=== PATIENT | female | born 1945 | race Caucasian/White ===

== ENCOUNTER → 2017-10-17 10:13 | Outpatient (CLI) | payer MEDICARE, MEDICAID, SELFPAY ==
--- NOTE | 2017-10-17 10:25 | XR_ITS ---
XR shoulder LT min 2V HISTORY: Shoulder pain ITS.REASON: IMPINGEMENT SYNDROME ORDERING PHYSICIAN: Colelen Hare PATIENT AGE: 72 years COMPARISON: None FINDINGS: There are mild osteoarthritic changes of the acromioclavicular joint and glenohumeral joint with mild hypertrophic changes at the AC joint. No fracture or dislocation. No lytic or blastic change. 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
== END ==
PROVIDERS: PCP Nurse Practitioner Family; Visit Provider Nurse Practitioner Family
DX: M75.42 Impingement syndrome of left shoulder (principal)
CPT/HCPCS: 73030

== ENCOUNTER 2017-10-26 18:59 | Emergency (ER) | payer MEDICARE, SELFPAY ==
[2017-10-26 19:12] VITALS: BP 153/72; PULSE 98; RESP 18; TEMP 36.8; O2SAT 97; BMI 30.2
[2017-10-26 19:58] LABS: Basophils % 0.5 % (0.1-2.0); Eosinophils # 0.1 K/mm3 (0.0-0.4); Hematocrit 41.2 % (37.0-47.0); Hemoglobin 13.1 g/dL (12.2-16.2); Lymphocytes # 2.5 K/mm3 (0.7-4.5); Lymphocytes % 32.7 K/mm3 (10-50); Mean Corpuscular HGB Conc 31.9 g/dL (31.8-35.4); Mean Corpuscular Hemoglobin 29.3 pg (27.0-31.2); Mean Platelet Volume 6.7 fl (7.4-10.4); Monocytes # 0.3 K/mm3 (0.1-1.0); Monocytes % 4.2 % (1.7-9.3); Neutrophils # 4.6 K/mm3 (1.8-7.8); Neutrophils % 61.6 % (37.0-80.0); Platelet Count 301 K/mm3 (142-424); Red Blood Count 4.48 M/mm3 (4.20-5.40); Red Cell Distribution Width 13.4 % (11.5-17.5); White Blood Count 7.5 K/mm3 (4.8-10.8)
[2017-10-26 20:19] LABS: Alanine Aminotransferase 26 U/L (12-78); Albumin Level 3.5 gm/dL (3.4-5.0); Albumin/Globulin Ratio 0.9 (1.1-1.8); Alkaline Phosphatase 105 U/L (46-116); Amylase 84 U/L (25-125); Aspartate Amino Transferase 14 U/L (15-37); Bilirubin,Total 0.3 mg/dL (0.2-1.0); Blood Urea Nitrogen 8 mg/dL (7-18); CKMB Relative Index 1.3 U/L (0-4.0); Calcium 9.3 mg/dL (8.5-10.1); Carbon Dioxide 29 mmol/L (21.0-32.0); Chloride 96 mmol/L (98-107); Creatine Kinase 39 U/L (26-192); Creatine Kinase MB < 0.5 mg/ml (0.0-3.6); Creatinine Clearance Estimated 70 mL/min (0-300); Creatinine,Serum 0.69 mg/dL (0.55-1.02); Estimated Glomerular Filt Rate 84 ml/min (>60); GFR (African American) 102 ML/MIN (>60); Globulin 3.7 gm/dl (1.3-3.2); Glucose 101 mg/dL (74-106); Lipase 203 u/L (73-393); Sodium 131 mmol/L (136-145); Total Protein,Serum 7.2 gm/dL (6.4-8.2); Troponin I < 0.02 ng/ml (0.00-0.06)
--- NOTE | 2017-10-26 20:42 | XR_ITS ---
XR chest 2V HISTORY: ITS.REASON: chest pain ORDERING PHYSICIAN: Michael Zarate MD PATIENT AGE: 72 years COMPARISON: 06/17/2016 FINDINGS: The cardiomediastinal silhouette and pulmonary vascularity are within normal limits. Chronic opacity is noted in the lingula similar to the previous exam consistent with fibrotic change. The remaining lungs are clear aside from a granuloma in the right upper lobe. Epidural stimulator device is present in the midthoracic spine. IMPRESSION: Chronic changes in the lingula. No acute finding
[2017-10-26 21:22] LABS: D-Dimer 698 (0-400)
--- NOTE | 2017-10-26 22:30 | CT_ITS ---
CT angio chest HISTORY: ITS.REASON: CHEST PAIN, SHORTNESS OF BREATH, ELEVATED D-DIMER ORDERING PHYSICIAN: Michael Zarate MD PATIENT AGE: 72 years TECHNIQUE: Axial images obtained following the administration of 75 mL of Isovue 370 . Sagittal, and coronal reformatted images are also generated and reviewed. COMPARISON: 04/15/2016 FINDINGS: No evidence of aortic pulmonary embolus or aortic aneurysm or dissection. Pulmonary artery/aorta ratio is greater than 1 with mild prominence of the main pulmonary artery. There is also mild stenosis of the ostium of the left main pulmonary artery. This is questionable clinical significance. Normal heart size. No evidence of pericardial effusion. No lobar consolidation or collapse. Centrilobular Emphysematous change. 1 cm left thyroid nodule. Spinal stimulator device is present. Upper abdominal images show a partially calcified nodule within the spleen measuring 12 mm. This is unchanged. IMPRESSION: 1. No evidence of pulmonary embolus or aortic aneurysm. 2. Mild prominence of the main pulmonary artery which may be seen with pulmonary arterial hypertension. Mild stenosis of the ostium of the left main pulmonary artery 3. Centrilobular emphysema
[2017-10-27 00:21] LABS: Creatine Kinase 38 U/L (26-192); Troponin I < 0.02 ng/ml (0.00-0.06)
--- NOTE | 2017-10-27 00:23 | HMH.EDGENADL ---
ED Disposition Clinical Impression: Acute bronchitis Qualifiers: Bronchitis organism: unspecified organism Qualified Code(s): J20.9 - Acute bronchitis, unspecified Disposition: Home, Self-Care Condition on Discharge: Good Instructions: Acute Bronchitis Additional Instructions: Please take the antibiotics prescribed as directed, follow up with your PCP within 24 hrs. If unable to see your doctor and if not better, please return promptly to this, same, emergency room for reevaluation. Prescriptions: levoFLOXacin [Levaquin 500mg tab] 500 mg PO DAILY #7 tab Referrals: Colleen Hare APRN [Primary Care Provider] - Time of Disposition: 00:24 - Critical Care Critical Care Time: No Attestation: On 10/26/17, the high probability of a clinically significant, sudden or life threatening deterioration of the following system(s) required my full and direct attention, intervention and personal management. The time I documented below is in addition to time spent performing reported procedures but includes the following listed in this critical care notation. Medical Decision Making - Medical Records Medical records reviewed: Yes: I reviewed the patient's medical records. Vital Signs: 10/26/17 19:12 10/27/17 00:40 Temperature 98.2 F 98.7 F Temperature Source Oral Oral Pulse Rate 80 Pulse Rate [Left Radial] 98 H Respiratory Rate 18 18 Blood Pressure 130/82 Blood Pressure [Right Arm] 153/72 Blood Pressure Mean [Right Arm] 99 Blood Pressure Source Automatic Cuff Blood Pressure Source [Right Arm] Automatic Cuff Blood Pressure Position Sitting Blood Pressure Position [Right Arm] Sitting 02 Sat by Pulse Oximetry 97 Oxygen Delivery Method Room Air Room Air - Lab Data Lab results reviewed: Yes: I reviewed the patient's lab results. Lab Results 10/26/17 19:42: WBC 7.5, RBC 4.48, Hgb 13.1, Hct 41.2, MCV 92.0, MCH 29.3, MCHC 31.9, RDW 13.4, Plt Count 301, MPV 6.7 L, Neut % (Auto) 61.6, Lymph % (Auto) 32.7, [place] % (Auto) 4.2, Eos % (Auto) 1.0, Baso % (Auto) 0.5, Neut # (Auto) 4.6, Lymph # (Auto) 2.5, [place] # (Auto) 0.3, Eos # (Auto) 0.1, Baso # (Auto) 0.0 10/26/17 19:42: Sodium 131 L, Potassium 4.0, Chloride 96 L, Carbon Dioxide 29, Anion Gap 10.0, BUN 8, Creatinine 0.69, Estimated Creat Clear 70, Estimated GFR 84, Est GFR ( Amer) 102, Glucose 101, Calcium 9.3, Total Bilirubin 0.3, AST 14 L, ALT 26, Alkaline Phosphatase 105, Total Creatine Kinase 39, CK-MB (CK-2) < 0.5, CK-MB (CK-2) Rel Index 1.3, Troponin I < 0.02, Total Protein 7.2, Albumin 3.5, Globulin 3.7 H, Albumin/Globulin Ratio 0.9 L, Amylase 84, Lipase 203 10/26/17 19:47: D-Dimer 698 H* 10/26/17 23:50: Total Creatine Kinase 38, CK-MB (CK-2) < 0.5, CK-MB (CK-2) Rel Index 1.3, Troponin I < 0.02 Result diagrams: 10/26/17 19:42 10/26/17 19:42 Orders (Tests/Meds): ED MEDICATIONS Discontinued Medications Generic Name Dose Route Start Last Admin Trade Name Freq PRN Reason Stop Dose Admin Enoxaparin Sodium 80 mg 10/26/17 22:23 Lovenox 80mg/0.8ml Syringe SQ 10/26/17 22:24 ONCE ONE Iopamidol 70 ml 10/27/17 01:13 10/26/17 21:45 Eyp-[id number]-355; 75ml Vial IV 10/27/17 01:14 70 ml ONCE ONE Administration Levofloxacin 750 mg 10/26/17 23:52 10/27/17 00:08 Levaquin 750mg Tablet PO 10/26/17 23:53 750 mg ONCE ONE Administration Protocol Sodium Chloride 10 ml 10/27/17 01:13 10/26/17 21:45 Rad-Saline Flush 10ml Syringe IV 10/27/17 01:14 10 ml ONCE ONE Administration Sodium Chloride 40 ml 10/27/17 01:13 10/26/17 21:45 Rad-Sod Chloride 0.9% 250ml IV 10/27/17 01:14 40 ml ONCE ONE Administration - Radiology Data #1 Image(s): Chest Image Reviewed: Yes I reviewed the patient's radiology results, Yes I reviewed the patient's radiology image Preliminary Findings: Normal/NAD - ECG Data Tracing #1 I reviewed this ECG and interpreted as documented below: ECG normal with no ac
[2017-10-27 00:25] LABS: CKMB Relative Index 1.3 U/L (0-4.0); Creatine Kinase MB < 0.5 mg/ml (0.0-3.6)
[2017-10-27 00:40] VITALS: BP 130/82; PULSE 80; RESP 18; TEMP 37.1; O2SAT 96
== END 2017-10-27 00:46 | disposition home or self-care (01) ==
PROVIDERS: Emergency Medicine; Emergency Provider Emergency Medicine; Family Provider Nurse Practitioner Family; PCP Nurse Practitioner Family
DX: J20.9 Acute bronchitis, unspecified (principal); Z79.899 Other long term (current) drug therapy; Z88.0 Allergy status to penicillin
CPT/HCPCS: 71046; 71275; 80053; 82150; 82550; 82553; 83690; 84484; 85025; 85378; 93005; 99282; Q9967

== ENCOUNTER → 2018-10-02 14:41 | Outpatient (CLI) | payer MEDICARE, SELFPAY ==
--- NOTE | 2018-10-02 14:47 | XR_ITS ---
XR DEXA axial skeleton HISTORY: ITS.REASON: OSTEOPENIA ORDERING PHYSICIAN: Colleen Hare PATIENT AGE: 73 years COMPARISON: 04/24/2016 FINDINGS: The BMD measured at the Left femoral neck is 0.836 g/cm squared with a T score of -1.5. This is considered Osteopenic according to the World Health Organization criteria. Fracture risk is Moderate. Treatment is advised. L1 L4 density has a T score of 1.0. The lumbar density has increased by 0.9% in the hip density has decreased by 0.6% IMPRESSION: Osteopenia with moderate fracture risk. Treatment is advised. Suggest follow-up exam in September 2020
--- NOTE | 2018-10-02 14:48 | MM_ITS ---
MM Dig screening mamm BI w/CAD ORDERING PHYSICIAN : Colleen Hare PATIENT AGE: 73 years GENDER: Female COMPARISON: April 2016 bilateral screening mammogram.] With subsequent Diagnostic mammogram Follow-up November 2016 right mammogram.. Right mammogram and ultrasound April 2016 INDICATION: Screening mammogram. 73-year-old. No hormones. No new complaints. Noncontributory family history. TECHNIQUE: Standard CC and MLO images were obtained. R2 CAD reviewed. FINDINGS: . Low-density breast with generalized fatty replacement. No new areas of significant concern. Only Scant Minimal residual fibroglandular elements bilaterally RIGHT BREAST:No new areas of concern . Stable area of scant fibroglandular asymmetry at lateral right breast. Unchanged. The Small nodular density/small cyst seen at 6:00 deep central right breast on previous 2016 studies as dissipated no longer evident. LEFT BREAST:No new areas of concern IMPRESSION: Stable low-density breast. No new areas of concern. Follow-up in one year recommended BI-RADS Category: 1 Negative RECOMMENDED FOLLOW-UP: 1YR 1 YEAR FOLLOW-UP (A letter has been sent to the patient regarding results of the study.)
== END ==
PROVIDERS: PCP Nurse Practitioner Family; Visit Provider Nurse Practitioner Family
DX: Z12.31 Encounter for screening mammogram for malignant neoplasm of breast (principal); Z13.820 Encounter for screening for osteoporosis; M85.89 Other specified disorders of bone density and structure, multiple sites
CPT/HCPCS: 77067; 77080

== ENCOUNTER → 2018-11-05 12:06 | Outpatient (CLI) | payer MEDICARE, SELFPAY ==
--- NOTE | 2018-11-05 | NVE_ITS ---
Venous Exam Indications: 729.81 Swelling of limb. IMPRESSIONS 1. There is no evidence of significant Reflux. 2. No evidence of deep or superficial vein thrombosis involving the left lower extremity 3. 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 Left lower extremity venous duplex evaluation. Doppler flow study including spectral analysis, color and reilly scale imaging. Location: Vascular laboratory. Patient status: Outpatient. CRITICAL FINDINGS - Reported to: Kaitlynn Parham's office - 11/05/2018 - 12:40 pm Tables: Venous flow and imaging: + +-------+ + Location Overall Flow properties + +-------+ + Left common femoral Patent Normal phasicity; spontaneous; normal augmentation; compressible + +-------+ + Left saphenofemoral junction Patent Compressible + +-------+ + Left profunda femoral Patent Compressible + +-------+ + Left femoral Patent Normal phasicity; spontaneous; normal augmentation; compressible + +-------+ + Left greater saphenous Patent Normal phasicity; spontaneous; normal augmentation; compressible + +-------+ + Left popliteal Patent Normal phasicity; spontaneous; normal augmentation; compressible + +-------+ + Left posterior tibial Patent Compressible + +-------+ + Left peroneal Patent Compressible + +-------+ + Left gastrocnemius Patent Compressible + +-------+ + Left soleal Patent Compressible + +-------+ + (Report amended ) Electronically signed by: Wellington Burdick [id number]
== END ==
PROVIDERS: PCP Internal Medicine Adolescent Medicine; Visit Provider Nurse Practitioner Family
DX: M79.605 Pain in left leg (principal); R60.0 Localized edema
CPT/HCPCS: 93971

== ENCOUNTER → 2018-11-26 12:55 | Outpatient (CLI) | payer MEDICARE, SELFPAY ==
--- NOTE | 2018-11-26 13:04 | XR_ITS ---
XR knee LT 4V Ordering Physician: Mala Muñoz MD Patient Age: 73 years: Female HISTORY: ITS.REASON: 4 views weightbearing Bilateral knee pain TECHNIQUE: : Weightbearing AP, lateral and Davila views were performed as well as oblique. Of both right and left knee. COMPARISON :Left knee November 2009 Left KNEE Progressive joint space narrowing and degenerative changes a left knee when compared to 2010 study. [id number] e narrowing at the lateral compartment appear to have progressed in the interval but we are comparing a very study today to the nonweightbearing study previous. Associated mild genu valgus Tricompartmental marginal osteophytes, moderate most evident about the medial and lateral compartment less pronounced at patellofemoral joint. Normal position of patella on the sunrise view. Likely some early osteochondral irregularities at lateral facet of patella reflecting degenerative changes here as well. Upper normal joint fluid no prominent joint effusion IMPRESSION... Degenerative arthritic changes at Left Knee with suggestion of slight progression since 2009 (Overall arthritic changes are less pronounced at left knee than the right knee ) Left knee: With mild/moderate joint space narrowing at lateral compartment & associated mild genu valgum . Tricompartmental Marginal osteophytes..
--- NOTE | 2018-11-26 13:04 | XR_ITS ---
XR knee RT 4V, Ordering Physician: Mala Muñoz MD Patient Age: 73 years: Female HISTORY: ITS.REASON: 4 views weightbearing TECHNIQUE: : Weightbearing AP, lateral and Davila views were performed as well as oblique. Of both right and left knee. COMPARISON : Right knee from 2012 ======== RIGHT KNEE Progressive joint space narrowing and degenerative changes a right knee versus March 2013. . Now moderately pronounced narrowing at the medial compartment . There is lateral shift of the tibia relative to the femur Right knee with moderate tricompartmental marginal osteophytes similar this only slightly more pronounced than previous study. The patellar sunrise view normal tracking in position of patella but with only slight slight lateral tilt of patella. Marginal osteophytes. Likely small joint effusion. Calcification projected in the again noted slightly more evident. Some these reflect flabella with possibly some additional synovial osteochondroma calcification; possible but less likely loose body IMPRESSION: Degenerative arthritic changes most pronounced at medial compartment right knee- have shown progression since 2012. Marked narrowing medial compartment. Tricompartmental marginal osteophytes.. Developing Arthritic changes also at patellofemoral joint Other minor observations in text
== END ==
PROVIDERS: PCP Nurse Practitioner Family; Visit Provider Orthopaedic Surgery
DX: M25.561 Pain in right knee (principal); M25.562 Pain in left knee
CPT/HCPCS: 73564

== ENCOUNTER → 2019-03-08 10:21 | Outpatient (POV) | payer OTHER, SELFPAY ==
[2019-03-08 10:39] VITALS: BP 129/63; PULSE 97; RESP 18; O2SAT 98; BMI 41.0
--- NOTE | 2019-03-08 11:30 | XR_ITS ---
EXAM: XR lumbar spine min 4V HISTORY: ITS.REASON: BACK PAIN,NEURO STIM IMPLANT ORDERING PHYSICIAN: Nanda Huff APRN PATIENT AGE: 74 years COMPARISON: 04/03/2017 FINDINGS: There is been prior posterior fusion at L3 and L4 with interpedicular screws and connecting rods. Degenerative disc disease is present at L3-L4, L4-5, and L5-S1. There is normal alignment. No fracture or dislocation is evident. No lytic or blastic change. There is mild degenerative disc disease also at T12-L1 and L1-L2. Neurostimulator device is present entering the thecal sac region at the T12-L1 area. Bony hypertrophy is present posteriorly at the fusion site and also at L4-L5. IMPRESSION: Postsurgical and degenerative changes as described above which do not appear significantly changed compared to 04/03/2017
--- NOTE | 2019-03-08 11:30 | XR_ITS ---
EXAM: XR thoracic spine 3V HISTORY: ITS.REASON: BACK PAIN,NEURO STIM IMPLANT Comparison: None FINDINGS: Epidural neurostimulator device is present. The superior aspect of the device is at the T5-T6 level. The device enters the epidural region at T12-L1. There are mild degenerative changes of the thoracic spine with multilevel degenerative disc disease. No acute fracture or dislocation. No lytic or blastic change. IMPRESSION: Neuro stimulator device present as described above with mild multilevel degenerative changes
--- NOTE | 2019-03-08 11:56 | HMH.PMCON ---
Assessment and Plan (1) Degenerative joint disease (DJD) of lumbar spine Current visit: Yes Status: Chronic Category: Medical Code(s): M47.816 - Spondylosis without myelopathy or radiculopathy, lumbar region (2) Lumbar radiculopathy Current visit: Yes Status: Chronic Category: Medical Code(s): M54.16 - Radiculopathy, lumbar region - Assessment and plan all Dx Assessment and Plan for all problems:: We will schedule the patient for x-ray of lumbar spine and thoracic spine to determine lead placement. Contacted [employer] [facility] for interrogation of the stimulator. He will be here at the next appointment. We will follow-up with her 1 week after the x-ray. She will also continue home stretching program and anti-inflammatories. She is been instructed to call the office prior to her next appointment. Dr. Price has reviewed this note and agrees with this plan of care. This note was dictated using voice recognition software and may contain errors or omissions HPI - Data of Consult Patient: new to practice Consult date: 03/08/19 Requesting Physician: Nanda Huff APRN Primary Care Provider: Colleen Hare APRN - Consult Narrative Reason for consult: Back pain History of present illness: Ms. Pickard is a 74 year old female presents today for complaints of lower back pain radiating to right leg and into bilateral legs. The patient was referred from Dr. Santos's office. The patient states that she did see Dr. Glez with pain management until September of this year. She reports that the physician has since retired and was referred to us. The patient does have a [employer] neurostimulator that was inserted in 2013. She states that she had 0 relief since day 1 of having this stimulator placed. She is unsure if she had a trial prior to having the stimulator inserted. She does say that she has had it programmed per [employer] [facility] at Dr. Glez office one time, but states he started using a different company for neurostimulator's and [employer] stop coming to his office . She has not been in contact with any of the [employer] representatives since then. Patient also says that she has tried epidurals in the past, but is unsure if they were any benefit because it has been a long time. She is also been trying a home stretching program and anti-inflammatories. She does not have any recent imaging. She also states battery in the stimulator quit last year per Dr. Glez office staff . CC: Nanda Huff APRN [facility] History Medical History: Reports:: Anxiety, Chronic Obstructive Pulmonary Disease (COPD), Depression, Gastroesophageal Reflux Disease(GERD), Hypertension Denies:: Cancer, Diabetes Mellitus Type 1, Diabetes Mellitus Type 2, MRSA *Have you ever received a pneumonia vaccine?: Yes *Have you received a flu vaccine this season?: Yes Laterality Cases: Other Surgeries: Yes: Other Amputation: No Fractures: No - *Social History Smoking Status: Current every day smoker Tobacco Type: cigarettes # Packs/Day (cigarettes): 1 Alcohol Intake: never Alcohol Intake Frequency:: other *Occupational Status:: other *Travel in the last 8 weeks: None - Psychiatric History Pschychiatric History:: Reports:: Anxiety, Depression Family Hx:: Coronary Artery Disease, Cancer Review of Systems - Allergic/Immunologic Comments: ROS General: no recent weight change, no fever, no sleep disturbances Respiratory: no cough, no shortness of air, no recurring pulmonary infections Cardiovascular/Peripheral Vascular: No chest pain, No palpitations, no edema, no shortness of breath. Gastrointestinal: no incontinence, normal bowel movements reported Genitourinary: no incontinence Musculoskeletal: Back pain Psychiatric: normal mood/ affect, [denies depression], [denies anxiety] Neurological: [denies weakness in extremities], [denies balance issues] Meds Home Medications Medication Instructions Recorded Confir
--- NOTE | 2019-03-08 12:05 | P.CONS_ITS ---
Assessment and Plan (1) Degenerative joint disease (DJD) of lumbar spine Current visit: Yes Status: Chronic Category: Medical Code(s): M47.816 - Spondylosis without myelopathy or radiculopathy, lumbar region (2) Lumbar radiculopathy Current visit: Yes Status: Chronic Category: Medical Code(s): M54.16 - Radiculopathy, lumbar region - Assessment and plan all Dx Assessment and Plan for all problems:: We will schedule the patient for x-ray of lumbar spine and thoracic spine to determine lead placement. Contacted [employer] [facility] for interrogation of the stimulator. He will be here at the next appointment. We will follow-up with her 1 week after the x-ray. She will also continue home stretching program and anti-inflammatories. She is been instructed to call the office prior to her next appointment. Dr. Price has reviewed this note and agrees with this plan of care. This note was dictated using voice recognition software and may contain errors or omissions HPI - Data of Consult Patient: new to practice Consult date: 03/08/19 Requesting Physician: Nanda Huff APRN Primary Care Provider: Colleen Hare APRN - Consult Narrative Reason for consult: Back pain History of present illness: Ms. Pickard is a 74 year old female presents today for complaints of lower back pain radiating to right leg and into bilateral legs. The patient was referred from Dr. Santos's office. The patient states that she did see Dr. Glez with pain management until September of this year. She reports that the physician has since retired and was referred to us. The patient does have a [employer] neurostimulator that was inserted in 2013. She states that she had 0 relief si nce day 1 of having this stimulator placed. She is unsure if she had a trial prior to having the stimulator inserted. She does say that she has had it programmed per [employer] at Dr. Glez office one time, but states he started using a different company for neurostimulator's and [employer] stop coming to his office . She has not been in contact with any of the [employer] representatives since then. Patient also says that she has tried epidurals in the past, but is unsure if they were any benefit because it has been a long time. She is also been trying a home stretching program and anti- inflammatories. She does not have any recent imaging. She also states battery in the stimulator quit last year per Dr. Glez office staff . CC: Nanda Huff APRN [facility] History Medical History: Reports:: Anxiety, Chronic Obstructive Pulmonary Disease (COPD), Depression, Gastroesophageal Reflux Disease(GERD), Hypertension Denies:: Cancer, Diabetes Mellitus Type 1, Diabetes Mellitus Type 2, MRSA *Have you ever received a pneumonia vaccine?: Yes *Have you received a flu vaccine this season?: Yes Laterality Cases: Other Surgeries: Yes: Other Amputation: No Fractures: No - *Social History Smoking Status: Current every day smoker Tobacco Type: cigarettes # Packs/Day (cigarettes): 1 Alcohol Intake: never Alcohol Intake Frequency:: other *Occupational Status:: other *Travel in the last 8 weeks: None - Psychiatric History Pschychiatric History:: Reports:: Anxiety, Depression Family Hx:: Coronary Artery Disease, Cancer Review of Systems - Allergic/Immunologic Comments: ROS General: no recent weight change, no fever, no sleep disturbances Respiratory: no cough, no shortness of air, no recurring pulmonary infections Cardiovascular/Peripheral Vascular: No chest pain, No palpitations, no edema, no shortness o
== END ==
PROVIDERS: PCP Nurse Practitioner Family; Visit Provider Clinical Nurse Specialist Family Health
DX: M47.816 Spondylosis without myelopathy or radiculopathy, lumbar region (principal); M54.16 Radiculopathy, lumbar region; Z46.2 Encounter for fitting and adjustment of other devices related to nervous system and special senses
CPT/HCPCS: 72072; 72110; 99202

== ENCOUNTER → 2019-03-11 10:09 | Outpatient (CLI) | payer MEDICARE, SELFPAY ==
--- NOTE | 2019-03-11 10:12 | CT_ITS ---
CT lung screening EXAM: CT LUNG LOW DOSE WO CONTRAST HISTORY: 75 pack-year smoking history, asymptomatic for lung cancer ITS.REASON: CURRENT TOBACCO USE ORDERING PHYSICIAN: Colleen Hare APRN PATIENT AGE: 74 years COMPARISON: None TECHNIQUE: The exam was performed on a GE Light Speed [address] scanner using 2.90 mGy CTDI. A low dose helical CT CHEST was performed on a multi-detector scanner. All CT scans at the facility use one or more dose reduction, viz: automated exposure control, ma/kV adjustment per patient size (including targeted exams where dose is matched to indication, i.e. head), or iterative reconstruction technique. The LDCT was performed in a facility that meets the criteria for the screening program. Data regarding this exam was submitted to ACR which is an approved registry. The order for this exam indicates that it came as a result of a lung cancer screening counseling shard decision-making visit that included all the elements required of such a visit including smoking cessation. The radiologist interpreting this exam meets the CMS criteria for the LDCT lung cancer screening program. The exam is reported using the Lung-RADS classification scale and reported to the ACR registry. NOTE: This study was performed for the specific purposes of lung cancer screening and is not an alternative to diagnostic chest CT. RADIATION DOSE: CTDI vol(CT dose Index-volume) = 2.90mG DLP (Dose Length Product) = 107.33 mGcm FINDINGS: COPD with centrilobular emphysema. Calcified granuloma right upper lobe. Mild fibrotic change in the lingula. No suspicious nodules evident. The main pulmonary artery is prominent at 3.8 cm with the pulmonary artery/aorta ratio greater than 1 which may be seen with pulmonary arterial hypertension. Upper abdominal images show a circular calcified lesion in the spleen anteriorly unchanged. IMPRESSION: 1. Lung RADS Category: 2, benign 2. Other findings: COPD/centrilobular emphysema. Pulmonary arterial hypertension suspected RECOMMENDATIONS: 12 month LDCT follow-up
== END ==
PROVIDERS: PCP Nurse Practitioner Family; Visit Provider Nurse Practitioner Family
DX: Z12.2 Encounter for screening for malignant neoplasm of respiratory organs (principal); Z87.891 Personal history of nicotine dependence

== ENCOUNTER → 2019-03-16 10:23 | Outpatient (POV) | payer OTHER, MEDICARE, SELFPAY ==
--- NOTE | 2019-03-16 10:47 | HMH.PAINSOAP ---
[facility] Pain Management SOAP Note Subjective:: Patient is a pleasant 74-year-old who presents today for follow-up for complaints of low back pain. Patient has a spinal cord stimulator [employer] that was inserted in 2013. Last visit, patient reported that she had no relief from the stimulator since placement. She was unsure if she had a trial of the spinal cord stimulator. Today, however, she rates her pain a 0 out of 10. She says that she has not had any pain for the last 2 to 3 days. [employer] labor relations representative will be here today to discuss reprogramming of the stimulator. She does say that she thinks the battery is starting to . Patient says that this is the best pain relief she has had since having the stimulator placed. ROS General: no recent weight change, no fever, no sleep disturbances Respiratory: no cough, no shortness of air, no recurring pulmonary infections Cardiovascular/Peripheral Vascular: No chest pain, No palpitations, no edema, no shortness of breath. Gastrointestinal: no incontinence, normal bowel movements reported Genitourinary: no incontinence Musculoskeletal: Low back pain Psychiatric: normal mood/ affect, [denies depression], [denies anxiety] Neurological: [denies weakness in extremities], [denies balance issues] Objective:: Physical Exam General: Alert and oriented x3, no acute distress, pleasant and cooperative, [on room air] Lungs: Resps E/U, Symmetrical chest expansion, Eyes: PERRL Musculoskeletal: Flexion and extension of lumbar spine somewhat guarded secondary to pain, deep tendon reflexes normal, strength in upper and lower extremities [5/5], normal gait noted Neurological: speech clear, full stack java developer equal, no gross sensory deficits Assessment:: Degenerative disc disease of lumbar spine with lumbar radiculopathy Plan:: The patient says she is doing well today. [facility] will be here today to check her spinal cord stimulator. We will schedule follow-up with her in 3 months to reassess her symptoms at that time. She is been instructed to call the office if she has any concerns prior to her next appointment. The end
[2019-03-16 10:49] VITALS: BP 131/55; PULSE 101; RESP 18; O2SAT 98; BMI 35.9
--- NOTE | 2019-03-16 10:50 | P.CONS_ITS ---
[facility] Pain Management SOAP Note Subjective:: Patient is a pleasant 74-year-old who presents today for follow-up for complaints of low back pain. Patient has a spinal cord stimulator [employer] that was inserted in 2013. Last visit, patient reported that she had no relief from the stimulator since placement. She was unsure if she had a trial of the spinal cord stimulator. Today, however, she rates her pain a 0 out of 10. She says that she has not had any pain for the last 2 to 3 days. 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 She does say that she thinks the battery is starting to . Patient says that this is the best pain relief she has had since having the stimulator placed. ROS General: no recent weight change, no fever, no sleep disturbances Respiratory: no cough, no shortness of air, no recurring pulmonary infections Cardiovascular/Peripheral Vascular: No chest pain, No palpitations, no edema, no shortness of breath. Gastrointestinal: no incontinence, normal bowel movements reported Genitourinary: no incontinence Musculoskeletal: Low back pain Psychiatric: normal mood/ affect, [denies depression], [denies anxiety] Neurological: [denies weakness in extremities], [denies balance issues] Objective:: Physical Exam General: Alert and oriented x3, no acute distress, pleasant and cooperative, [on room air] Lungs: Resps E/U, Symmetrical chest expansion, Eyes: PERRL Musculoskeletal: Flexion and extension of lumbar spine somewhat guarded secondary to pain, deep tendon reflexes normal, strength in upper and lower extremities [5/5], normal gait noted Neurological: speech clear, yield analyst equal, no gross sensory deficits Assessment:: Degenerative disc disease of lumbar spine with lumbar radiculopathy Plan:: The patient says she is doing well today. [facility] will be here today to check her spinal cord stimulator. We will schedule follow-up with her in 3 months to reassess her symptoms at that time. She is been instructed to call the office if she has any concerns prior to her next appointment. The end
== END ==
PROVIDERS: PCP Nurse Practitioner Family; Visit Provider Clinical Nurse Specialist Family Health
DX: M51.16 Intervertebral disc disorders with radiculopathy, lumbar region (principal)
CPT/HCPCS: 99212

== ENCOUNTER → 2019-03-16 12:05 | Outpatient (CLI) | payer MEDICARE, SELFPAY ==
[2019-03-16 13:30] VITALS: PULSE 90; PULSE 95
== END ==
PROVIDERS: PCP Nurse Practitioner Family; Visit Provider Nurse Practitioner Family
DX: J44.9 Chronic obstructive pulmonary disease, unspecified (principal); R06.02 Shortness of breath
CPT/HCPCS: 94060; 94640; 94727; 94729; 99212

== ENCOUNTER 2019-04-13 09:05 | Outpatient (RCR) | payer MEDICARE, MEDICAID, SELFPAY | END 2019-06-14 13:53 | disposition home or self-care (01) | LOC: PT 09:05 | PROVIDERS: Visit Provider Nurse Practitioner Family | DX: J44.9 Chronic obstructive pulmonary disease, unspecified (principal) | CPT/HCPCS: G0424 ==

== ENCOUNTER → 2019-06-14 09:33 | Outpatient (POV) | payer MEDICARE, SELFPAY ==
[2019-06-14 09:48] VITALS: BP 124/63; PULSE 109; RESP 18; O2SAT 98; BMI 34.7
--- NOTE | 2019-06-14 12:28 | HMH.PAINSOAP ---
[facility] Pain Management SOAP Note Subjective:: Is a pleasant 74-year-old white female who presents today for follow-up. She rates her pain a 10 out of 10. Patient has been seen several times for interrogation of her spinal cord stimulator from [facility]. Patient reported that she had no relief from her stimulator since placement she is unsure if she ever had a trial. At her last visit she had 0 out of 10 pain. Patient was reprogram she states that she can feel that the stimulator is on however it is not beneficial for her. Patient was given epidural injections by Dr. prieto in the past. She has low back pain with numbness and tingling worse on the right side he is not on any blood thinner. She is continuing a home stretching program. ROS General: no recent weight change, no fever, no sleep disturbances Respiratory: no cough, no shortness of air, no recurring pulmonary infections Cardiovascular/Peripheral Vascular: No chest pain, No palpitations, no edema, no shortness of breath. Gastrointestinal: no incontinence, normal bowel movements reported Genitourinary: no incontinence Musculoskeletal: Back pain, leg pain Psychiatric: normal mood/ affect Neurological: [denies weakness in extremities], [denies balance issues] Objective:: Physical Exam General: Alert and oriented x3, no acute distress, pleasant and cooperative, [on room air] Lungs: Resps E/U, Symmetrical chest expansion, [CTA bilateral] Eyes: PERRL Musculoskeletal: Flexion and extension of lumbar spine somewhat guarded secondary to pain, deep tendon reflexes normal, strength in upper and lower extremities [5/5], [abnormal gait noted] Neurological: speech clear, armhole sewer equal, no gross sensory deficits Assessment:: Degenerative disc disease lumbar spine with lumbar radiculopathy Plan:: We will schedule the patient for an L4-L5 lumbar epidural steroid injection. I believe it would be beneficial given her symptomology. I will follow-up with the patient after her injection reassess her symptoms at that time is been instructed to call the office if she has any issues prior to her next appointment. Dr. Price has reviewed this note and agrees with this plan of care. This note was dictated using voice recognition software and may contain errors or omissions [facility] History I have reviewed the patient's past medical history: Yes Medical History: Reports:: Anxiety, Chronic Obstructive Pulmonary Disease (COPD), Depression, Gastroesophageal Reflux Disease(GERD), Hypertension Denies:: Cancer, Diabetes Mellitus Type 1, Diabetes Mellitus Type 2, MRSA *Have you ever received a pneumonia vaccine?: Yes *Have you received a flu vaccine this season?: Yes Laterality Cases: Other Surgeries: Yes: Other Amputation: No Fractures: No - *Social History Smoking Status: Current every day smoker Tobacco Type: cigarettes # Packs/Day (cigarettes): 1 Alcohol Intake: never Alcohol Intake Frequency:: other *Occupational Status:: other *Travel in the last 8 weeks: None - Psychiatric History Pschychiatric History:: Reports:: Anxiety, Depression Family Hx:: Coronary Artery Disease, Cancer
--- NOTE | 2019-06-14 12:31 | P.CONS_ITS ---
[facility] Pain Management SOAP Note Subjective:: Is a pleasant 74-year-old white female who presents today for follow-up. She rates her pain a 10 out of 10. Patient has been seen several times for interrogation of her spinal cord stimulator from [facility]. Patient reported that she had no relief from her stimulator since placement she is unsure if she ever had a trial. At her last visit she had 0 out of 10 pain. Patient was reprogram she states that she can feel that the stimulator is on however it is not beneficial for her. Patient was given epidural injections by Dr. prieto in the past. She has low back pain with numbness and tingling worse on the right side he is not on any blood thinner. She is continuing a home stretching prog maegan. ROS General: no recent weight change, no fever, no sleep disturbances Respiratory: no cough, no shortness of air, no recurring pulmonary infections Cardiovascular/Peripheral Vascular: No chest pain, No palpitations, no edema, no shortness of breath. Gastrointestinal: no incontinence, normal bowel movements reported Genitourinary: no incontinence Musculoskeletal: Back pain, leg pain Psychiatric: normal mood/ affect Neurological: [denies weakness in extremities], [denies balance issues] Objective:: Physical Exam General: Alert and oriented x3, no acute distress, pleasant and cooperative, [on room air] Lungs: Resps E/U, Symmetrical chest expansion, [CTA bilateral] Eyes: PERRL Musculoskeletal: Flexion and extension of lumbar spine somewhat guarded secondary to pain, deep tendon reflexes normal, strength in upper and lower extremities [5/5], [abnormal gait noted] Neurological: speech clear, cotton ginner helper equal, no gross sensory deficits Assessment:: Degenerative disc disease lumbar spine with lumbar radiculopathy Plan:: We will schedule the patient for an L4-L5 lumbar epidural steroid injection. I believe it would be beneficial given her symptomology. I will follow-up with the patient after her injection reassess her symptoms at that time is been instructed to call the office if she has any issues prior to her next appointment. Dr. Price has reviewed this note and agrees with this plan of care. This note was dictated using voice recognition software and may contain errors or omissions [facility] History I have reviewed the patient's past medical history: Yes Medical History: Reports:: Anxiety, Chronic Obstructive Pulmonary Disease (COPD), Depression, Gastroesophageal Reflux Disease(GERD), Hypertension Denies:: Cancer, Diabetes Mellitus Type 1, Diabetes Mellitus Type 2, MRSA *Have you ever received a pneumonia vaccine?: Yes *Have you received a flu vaccine this season?: Yes Laterality Cases: Other Surgeries: Yes: Other Amputation: No Fractures: No - *Social History Smoking Status: Current every day smoker Tobacco Type: cigarettes # Packs/Day (cigarettes): 1 Alcohol Intake: never Alcohol Intake Frequency:: other *Occupational Status:: other *Travel in the last 8 weeks: None - Psychiatric History Pschychiatric History:: Reports:: Anxiety, Depression Family Hx:: Coronary Artery Disease, Cancer
== END ==
PROVIDERS: PCP Nurse Practitioner Family; Visit Provider Clinical Nurse Specialist Family Health
DX: M51.16 Intervertebral disc disorders with radiculopathy, lumbar region (principal)
CPT/HCPCS: 99212

== ENCOUNTER → 2019-08-02 10:33 | Outpatient (CLI) | payer MEDICARE, MEDICAID, SELFPAY ==
--- NOTE | 2019-08-02 10:41 | XR_ITS ---
PROCEDURE: XR CHEST 2V CLINICAL HISTORY: COPD W/ CHRONIC BRONCHITIS COPD with chronic bronchitis COMPARISON: CXR CHEST(2 VIEWS-NOT PORTABLE) from 06/17/2016 CXR2V XR chest 2V from 10/26/[address] angio chest from 10/26/2017 CXR2V XR chest 2V from 02/02/2018 FINDINGS: The cardiomediastinal silhouette and pulmonary vascularity are within normal limits. Changes of COPD with atelectatic changes or scarring in the lingula. Calcified granuloma right upper lobe. No lobar consolidation or collapse. There is an epidural stimulator device present in the midthoracic region and there has been prior lumbar surgery No acute bony abnormalities. IMPRESSION: COPD with scarring and/or atelectatic change in the lingula Dictated by: Wellington Burdick MD 08/02/2019 11:51 Electronically signed by Wellington Burdick MD in [place] 08/02/2019 11:51
== END ==
PROVIDERS: PCP Internal Medicine Adolescent Medicine; Visit Provider Nurse Practitioner Family
DX: Z01.818 Encounter for other preprocedural examination (principal); M17.0 Bilateral primary osteoarthritis of knee; J44.9 Chronic obstructive pulmonary disease, unspecified
CPT/HCPCS: 71046

== ENCOUNTER → 2019-08-09 11:25 | Outpatient (CLI) | payer MEDICARE, MEDICAID, SELFPAY ==
--- NOTE | 2019-08-09 11:41 | XR_ITS ---
PROCEDURE: XR KNEE RT 4V CLINICAL INDICATION: pre op xray Right knee pain COMPARISON: [id number] KNEE-3 VIEWS-RT from 03/24/2013 [id number] XR knee LT 4V from 11/26/2018 [id number] XR knee RT 4V from 11/26/2018 FINDINGS: There are severe osteoarthritic changes at the medial compartment and moderate osteoarthritic change at the patellofemoral joint and lateral compartment. There is mild lateral tibial cyst subluxation 1 cm. There are multiple loose bodies in the popliteal fossa region along the proximal tibia medially. Osteophyte is present along the posterior and medial aspect the patella. No fracture or dislocation. IMPRESSION: Severe osteoarthritis with loose intra-articular bodies Dictated by: Wellington Burdick MD 08/09/2019 12:13 Electronically signed by Wellington Burdick MD in [place] 08/09/2019 12:14
== END ==
PROVIDERS: PCP Internal Medicine Adolescent Medicine; Visit Provider Orthopaedic Surgery
DX: Z01.818 Encounter for other preprocedural examination; M17.11 Unilateral primary osteoarthritis, right knee
CPT/HCPCS: 73564; 87081

== ENCOUNTER → 2019-09-06 08:46 | Outpatient (CLI) | payer MEDICARE, MEDICAID, SELFPAY | PROVIDERS: Visit Provider Orthopaedic Surgery | DX: Z01.818 Encounter for other preprocedural examination (principal); M17.11 Unilateral primary osteoarthritis, right knee | CPT/HCPCS: 36415; 86850 ==

== ENCOUNTER 2019-09-07 06:12 | Observation (INO) ==
--- NOTE | 2019-09-07 12:12 | Progress Note ---
[facility] Anesthesia Checklist - Structural Data Admitted From: Home Planned Operative Procedure/s: r tka Consent for Planned Operative Procedure(s) Verified: Yes - Additional verifications Anesthesia Reactions: No Hx Blood Transfusions: No Blood Transfusion Reaction: No - Airway Assessment C-Spine Mobility Assessed: Yes TMJ Mobility Assessed: Yes Dentition: Edentulous - Neurological Assessment Level of Consciousness: Awake, Alert, Appropriate - Anesthesia Plan Anesthesia Risk discussed: Yes Anesthesia Plan: Verified ASA Class: III Anesthesia Type: Spinal - Preoperative Comments Pre-Operative Comments: leg block explained to pt incl risks and benefits, pt agrees to proceed [facility] History I have reviewed the patient's past medical history: Yes Medical History: Reports:: Anxiety, Chronic Obstructive Pulmonary Disease (COPD), Depression, Gastroesophageal Reflux Disease(GERD), Hypertension, MRSA Denies:: Cancer, Diabetes Mellitus Type 1, Diabetes Mellitus Type 2, Internal Pacemaker, Seizures *Have you ever received a pneumonia vaccine?: Yes *Have you received a flu vaccine this season?: Yes Other Medical History: Denies: Blood Transfusion Reaction Anesthesia experience/problems:: none Laterality Cases: Left: Breast Biopsy, Bilateral: Cataract Other Surgeries: Yes: Cardiac Catheterization, Cholecystectomy, Colonoscopy, Other. No: Pacemaker Amputation: No Fractures: No - *Social History Educational Level: Completed High School Smoking Status: Current every day smoker Tobacco Type: cigarettes # Packs/Day (cigarettes): 1 Alcohol Intake: current Alcohol Intake Frequency:: holidays/special occasions only Substance Use Type: denies use *Occupational Status:: retired, disabled Housing: house Household Members: family *Travel in the last 8 weeks: None - Psychiatric History Pschychiatric History:: Reports:: Anxiety, Depression Family Hx:: Coronary Artery Disease, Cancer
--- NOTE | 2019-09-07 12:13 | Progress Note ---
[facility] Anesthesia Record Part I Intake, IV Amount: 2,500 Estimated blood loss (mL): 100 Urine output (mL): 250 Blood Pressure: 137/65 SaO2: 93 Pulse Rate: 94 Respiratory Rate: 12 Temperature: 98.1 F Patient is:: Awake, Stable Stable to PACU at:: 11:55
--- NOTE | 2019-09-07 12:30 | History & Physical Report ---
*Admission Date: 09/07/19 *Reason for consult:: s/p R TKA *History of present illness: 74yo F with tricompartmental DJD of the R knee, refractory to conservative therapy. She has tried the following for her knee: steroid injection x2, celebrex, NSAIDs, tylenol, ice, heat, topical creams, and bracing with no im provement in her pain. BMI is 36.4. Medical history is significant for COPD, GERD, HTN, anxiety, parkinsons. She is a smoker and has smokes between 1-1.5 ppd for the past 50 years. DEXA scan was performed in September 2018 = T-score -1.5; osteopenia. I discussed treatment options and she has elected to proceed with TKA; the pain has become so severe that it is inhibiting her ability to perform ADLs and is adversely affecting her quality of life. We discussed at length the surgical technique and expected perioperative course, including length of hospitalization, need for postoperative physical therapy, use of anticoagulants, expected level of pain, and total length of recovery. I also explained the potential risks of surgery, including bleeding, infection, fracture, wound healing complications, need for revision surgery, continued pain post- operatively, DVT/PE, and risks of both general and regional anesthesia, including nerve damage, heart attack, stroke and even . The patient vocal ized understanding of these risks and has agreed to proceed with surgery; informed consent was obtained. 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 She held her aspirin, fish oil and celebrex x1 week pre-op. All labs/tests were within acceptable limits and she was cleared by her PCP for surgery. R TKA was performed this morning without complication. The patient had a spinal anesthetic for the procedure with an intra-operative periarticular injection, augmented with an adductor canal block in PACU. [facility] History I have reviewed the patient's past medical history: Yes Medical History: Reports:: Anxiety, Chronic Obstructive Pulmonary Disease ([place] PD), Depression, Gastroesophageal Reflux Disease(GERD), Hypertension, MRSA Denies:: Cancer, Diabetes Mellitus Type 1, Diabetes Mellitus Type 2, Internal Pacemaker, Seizures *Have you ever received a pneumonia vaccine?: Yes *Have you received a flu vaccine this season?: Yes Other Medical History: Denies: Blood Transfusion Reaction Anesthesia experience/problems:: none Laterality Cases: Left: Breast Biopsy, Bilateral: Cataract Other Surgeries: Yes: Cardiac Catheterization, Cholecystectomy, Colonoscopy, Other. No: Pacemaker Amputation: No Fractures: No - *Social History Educational Level: Completed High School Smoking Status: Current every day smoker Tobacco Type: cigarettes # Packs/Day (cigarettes): 1 Alcohol Intake: current Alcohol Intake Frequency:: holidays/special occasions only Substance Use Type: denies use *Occupational Status:: retired, disabled Housing: house Household Members: family *Travel in the last 8 weeks: None - Psychiatric History Pschychiatric History:: Reports:: Anxiety, Depression Family Hx:: Coronary Artery Disease, Cancer Review of Systems - Review of Systems Review of systems:: pertinent systems reviewed and negative unless documented below Meds Home Medications Medication Instructions Recorded Confirmed Type Albuterol Sulfate [Albuterol 2.5 mg IH Q6HP PRN 10/26/17 09/07/19 History 0.083% 2.5mg/3mL neb] Fluticasone/Vilanterol [Breo 1 act INHALATION DAILY 10/26/17 09/07/19 History Ellipta 100-25 Mcg INH] Pravastatin Sodium 80 mg PO HS 10/26/17 09/07/19 History Tiotropium [place] [Spiriva 2 puffs IH DAILY 10/26/17 09/07/19 History Respimat] aspirin 81 mg chewable tablet 81 mg PO DAILY 11/06/17 09/07/19 History Famotidine 40 mg PO HS 02/02/18 09/07/19 History calcium carbonate 600 mg calcium 600 mg PO BID 08/09/19 09/07/19 History (1,500 mg) tablet omega 3-[id number]-phj-fish oil 1,000 mg 2 cap PO DAILY 08/09/19 09/07/19 History (120 mg-180 mg) capsule mupirocin 2 % topical ointment 1 applic TOPICAL BID #15 g 08/12/19 09/07/19 Rx Buspirone HCl [Buspar 5mg tablet] 10 mg PO BID 09/07/19 09/07/19 History Celecoxib 200 mg PO DAILY 09/07/19 09/07/19 History Ergocalciferol (Vitamin D2) 50,000 units PO WEEKLY 09/07/19 09/07/19 History [Vitamin D2] Escitalopram Oxalate [Lexapro] 20 mg PO DAILY 09/07/19 09/07/19 History Fluticasone/Vilanterol [Breo 1 puff IH DAILY 09/07/19 09/07/19 History Ellipta 100-25 Mcg INH] Furosemide [Furosemide 20mg Tab] 20 mg PO DAILYP PRN 09/07/19 09/07/19 History Losartan/Hydrochlorothiazide 1 each PO DAILY 09/07/19 09/07/19 History [Hyzaar 100-25 Tablet] Vitamin E (Dl,Tocopheryl Acet) 1,600 unit PO DAILY 09/07/19 09/07/19 History [Vitamin E 400 IUnits capsule] Allergies Allergy/AdvReac Type Severity Reaction Status Date / Time Penicillins [PENICILLINS] Allergy Mild Verified 09/06/19 13:17 cefaclor [From CECLOR] Allergy Unknown Verified 09/06/19 13:17 levaquin Allergy Unknown Uncoded 08/09/19 10:14 Exam Vital signs and Labs for Last 24 Hours: Temp Pulse Resp BP Pulse Ox 98.1 F 94 H 12 137/65 93 L 09/07/19 12:13 09/07/19 12:13 09/07/19 12:13 09/07/19 12:13 09/07/19 06:38 I & O for Last 24 hours: Intake & Output 09/05/19 09/06/19 09/07/19 09/08/19 11:59 11:59 11:59 11:59 Intake Total 2500 / 2500 Balance 2500 / 2500 Weight 219 lb - Constitutional no acute distress - *Routine Respiratory Exam Present: wheezes. Absent: decreased breath sounds, respiratory distress - *Routine Cardiovascular Exam Present: RRR - *Routine Abdominal Exam Present: soft. Absent: tenderness - *Routine Exam Comments: perez cath to gravity w/clear yellow urine - *Routine Extremities Exam Comments: RLE surgical dressings c/d/i palpable pedal pulses R foot, foot warm/pink sensory/motor impaired due to spinal + block - *Routine Neurological Exam Present: alert, oriented X3, moving all extremities, normal tone, hearing grossly intact, normal speech. Absent: altered mental status Results - Labs Labs: All other labs normal. Assessment and Plan (1) Degenerative arthritis of right knee Current visit: Yes Status: Acute Category: Medical Code(s): M17.11 - Unilateral primary osteoarthritis, right knee (2) Total knee replacement status Current visit: Yes Status: Acute Category: Surgical Code(s): Z96.659 - Presence of unspecified artificial knee joint - Assessment and plan all Dx Assessment and Plan for all problems:: 74yo F POD #0 s/p R TKA -- nebulizer treatment for wheezing -- WBAT RLE -- elevate RLE, ice frequently with polar care device -- SCDs BLE -- PT/OT to eval -- DVT prophy: lovenox to start tomorrow, continue x14 days, then transition to aspirin -- Vancomycin 1g x1 dose will be given due to h/o MRSA. Clindamycin given before surgery, will be continued x24 hours. -- pain control: po [place], iv morphine for breakthrough -- d/c chris wilson -- Dr. Parham on consult for medical management -- care management for dispo planning
--- NOTE | 2019-09-07 12:39 | Operative Note ---
Date of procedure: 09/07/19 Pre-op Diagnosis:: R knee degenerative joint disease (DJD) Post-op Diagnosis:: R knee degenerative joint disease (DJD) Procedure performed:: R total knee arthroplasty (TKA) Surgeon:: Mala Muñoz MD Post Production Assistant(s):: JUSTIN Browning POWER GENERATION EQUIPMENT REPAIRER:: Richard Cardona Anesthesia: regional, local, spinal Estimated blood loss (mL): 100 Clinical Note:: 74yo F with tricompartmental DJD of the R knee, refractory to conservative therapy. She has tried the following for her knee: steroid injection x2, celebrex, NSAIDs, tylenol, ice, heat, topical creams, and bracing with no improvement in her pain. BMI is 36.4. Medical history is significant for COPD, GERD, HTN, anxiety, parkinsons. She is a smoker and has smokes between 1-1.5 ppd for the past 50 years. DEXA scan was performed in September 2018 = T-score -1.5; osteopenia. I discussed treatment options and she has elected to proceed with TKA; the pain has become so severe that it is inhibiting her ability to perform ADLs and is adversely affecting her quality of life. We discussed at length the surgical technique and expected perioperative course, including length of hospitalization, need for postoperative physical therapy, use of anticoagulants, expected level of pain, and total length of recovery. I also explained the potential risks of surgery, including bleeding, infection, fracture, wound healing complications, need for revision surgery, continued pain post- operatively, DVT/PE, and risks of both general and regional anesthesia, including nerve damage, heart attack, stroke and even . The patient vocalized understanding of these risks and has agreed to proceed with surgery; informed consent was obtained. 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 She held her aspirin, fish oil and celebrex x1 week pre-op. All labs/tests were within acceptable limits and she was cleared by her PCP for surgery. Operative findings:: [employer] BCS TKA system 7 femur 5 tibia patella 32 x 9mm poly 11mm Operative note:: The patient was identified in pre-operative holding and the R leg signed by myself with marking pen. Consent was verified with the patient and all questions were answered. Pre-operative labs were confirmed to be within acceptable limits; MRSA nasal swab positive, confirmed with patient that she took Bactroban x5 days. The patient was then taken to the OR and placed supine on the operative table; 900mg clindamycin were infused intravenously and spinal anesthetic administered. The patient was given IV sedation and a nonsterile tourniquet was placed on the upper R thigh; the leg was prepped and draped in the usual sterile fashion. Timeout was performed, identifying the correct patient, correct procedure, and correct site. The procedure was begun by exsanguinating the R lower extremity with an Esmarch and inflating the tourniquet to 300 mmHg. A longitudinal incision was made down the anterior aspect of the R knee centered over the patella, extending from 2 fingerbreadths superior to the patella to the tibial tubercle. Subcutaneous tissue was incised down to the patellar retinaculum and limited medial and lateral flaps were raised. Medial parapatellar arthrotomy was then made and Bovie used to perform a moderate medial release. Next, the patella was everted and the knee flexed to around 100 degrees. Fat pad was excised and both medial and lateral menisci were excised as well. The ACL and PCL were then excised sharply. The joint was exposed with Charisma retractors medially and laterally. Next the entry reamer was used to find and create the starting point for the distal femoral cutting guide. Through this entry point, the intramedullary temi component of the distal femoral cutting guide was inserted and the cutting guide pinned into place, set at 6 degrees valgus. This cutting guide was pinned into place, the intramedullary temi removed, and oscillating saw used to create distal femoral cut, removing 10 mm from the distal femur. Next the tibial cut was made, using an extramedullary cutting guide. The decision was made to take 3 mm off the medial plateau, and the guide was pinned in this position. Oscillating saw was used to make the proximal tibial cut, which was then removed with a flat broad osteotome. Extension block was attempted but the knee too tight to be placed, so the tibial cutting block was placed back into position and an additional 4mm taken off the proximal tibia. The extension block then fit nicely; flexion gap was not checked at this time, only extension. While I had good exposure, I sized the tibia, and a size 5 component appeared appropriate; a 6 would overhang. Pins were removed from the distal femur and proximal tibia, and I returned to the femur to size/cut the remaining bone. The femoral component was sized using the sizing guide and a size 7 femur found to be the most appropriate component size. A size 7 5-in-1 cutting block was then placed on the distal femur, set in 3 degrees of external rotation. The saw was then used to make all 5 cuts in this cutting guide and all excised bone removed from the knee. Lamina spreaders were used to check the back of the knee for excess bone and a significant amount of posterior osteophyte was found. This was removed with Trev and a curved osteotome, and several loose bodies were extruded in the process. A curved osteotome was used to perform a gentle posterior capsular release. Lamina oil well service operator helper was removed and femoral trial placed on the distal femur. This was seen to fit very well both medially laterally and no notching of the anterior femoral cortex was seen. Next the tibial baseplate 5 trial with attached 9mm poly trial was inserted and floated in the knee. The knee was reduced and taken through a range of motion, letting the tibia find it's desired rotation. This was checked against the tibial tubercle and found to be appropriately rotated just medial to the tibial tubercle. The knee came into full extension with good ROM, but felt slightly unstable with a 9mm poly. I increased to a 10mm poly and this felt good but I suspected an 11 would be the best fit. The patella was cut next, using the patellar cutting guide. The patella was 22mm thick using calipers; the guide was set to remove 7-8mm bone, planning on using a 7.5mm patella. Once the patellar cut was made, the caliper measured the patella as 12mm; I am unsure where the d iscrepancy was, but I decided to use a 9mm thick patella instead. A size 32 patella was the most appropriate size, so this drill guide was placed over the cut surface of the patella and peg holes drilled. 32 trial patella was placed and the knee taken through range of motion. The poly trial was swapped out for an 11mm and felt to be very stable; this was the final configuration of components: 7 femur, 5 tibia, 32/9 patella and I anticipated an 11mm poly. Femoral component/poly were removed and the tibia prepped; the plate was pinned into place in the appropriate amount of rotation and reamer/punch used to prep the proximal tibia. These components were removed and the knee thoroughly irrigated with pulsatile lavage. It was dried with clean laps and final components cemented into place. The knee was reduced with an 11mm poly trial and the knee placed into extension while the cement cured. Once the cement was fully hardened, the knee was taken through a full range of motion and I liked the feel of the 11mm poly. There was good medial/lateral stability and the patella tracked well, so the trial poly was removed, tourniquet dropped and the knee checked for bleeding. No bleeding was seen in the back of the knee, so the knee irrigated once more and the final poly inserted. Joint cocktail was injected into the posterior capsule of the knee just prior to final poly placement, and across the anterior knee afterwards; this was a mixture of Toradol, epinephrine, morphine and bupivacaine, and approximately 50-60 cc were infused in total. During this time the knee was also treated with a dilute Betadine irrigation that soaked for 3 minutes. The knee was copiously irrigated with more pulsatile lavage and closed in a layered fashion using Stratafix barbed suture in all layers, also reinforcing the capsular closure with ethibone. The final layer was a subcuticular closure, which was then sealed with Prineo. Sterile dressings were applied with a Silverlon dressing and wrapped with webril/Jaylen from the toes to the upper thigh. The patient was transferred to PACU in good condition. Adductor canal block was performed by anesthesia in PACU. She did very well throughout this case with no immediate complications. Tourniquet time (min): 104 Condition: stable Disposition: PACU Specimens:: none Complications:: none
--- NOTE | 2019-09-07 14:14 | Progress Note ---
Internal Medicine - PN: Subj *Date: 09/07/19 *Time: 14:14 Interval history: 74 year old female with a history of COPD, anxiety and OA who underwent right TKA today was seen for medical consult. Patient reports shortness of breath is at baseline, no cough. She smokes 2 PPD, declines nicotine patch. Denies pain, states "my leg is still numb." She feels well and has no complaint. Exam Vital signs and Labs for Last 24 Hours: Temp Pulse Resp BP Pulse Ox 97.7 F 93 H 16 125/54 L 97 09/07/19 13:15 09/07/19 13:45 09/07/19 13:45 09/07/19 13:45 09/07/19 13:45 I & O for Last 24 hours: Intake & Output 09/05/19 09/06/19 09/07/19 09/08/19 11:59 11:59 11:59 11:59 Intake Total 2500 / 2500 Balance 2500 / 2500 Weight 219 lb 224 lb 3 oz Narrative: Alert and oriented x3. Rate and rhythm regular. No JVD. No LE edema. Scattered wheezes throughout, no crackles/rhonchi. Abdomen soft and nontender. Right leg dressing intact, sensation/movement altered from spinal anesthesia. Pulses 1+, pink, warm, good cap refill. Assessment and Plan (1) Degenerative arthritis of right knee Current visit: Yes Status: Acute Category: Medical Code(s): M17.11 - Unilateral primary osteoarthritis, right knee (2) Total knee replacement status Current visit: Yes Status: Acute Category: Surgical Code(s): Z96.659 - Presence of unspecified artificial knee joint (3) COPD (chronic obstructive pulmonary disease) Current visit: Yes Status: Chronic Category: Medical Code(s): J44.9 - Chronic obstructive pulmonary disease, unspecified (4) GEOVANNY (generalized anxiety disorder) Current visit: Yes Status: Chronic Category: Medical Code(s): F41.1 - Generalized anxiety disorder - Assessment and plan all Dx Assessment and Plan for all problems:: Home medication list reviewed. Overall doing well from cardiopulmonary standpoint, respiratory assessment at baseline. Start albuterol q6 hours scheduled for COPD. Recommend nicotine patch, patient declines. Start IS Q 1 hour while awake.
[2019-09-07 15:20] LABS: Microscopic, Urine URINE MICROSCOPIC (MICROSCOPIC)
[2019-09-07 15:27] LABS: Appearance,Urine CLEAR (Clear); Bilirubin,Urine Negative (Negative); Blood, Urine Negative (Negative); Color,Urine YELLOW (Yellow); Glucose,Urine (UA) Negative (Negative); Ketones,Urine Negative (Negative); Leukocyte Esterase,Urine Negative (Negative); Protein,Urine Negative (Negative); Specific Gravity, Urine 1.025 (1.005-1.030); Urobilinogen,Urine 0.2 EU/dl (0.2)
[2019-09-07 15:38] LABS: Bacteria,Urine Trace /lpf; Mucus,Urine 3+ /lpf
[2019-09-08 06:19] LABS: Basophils % 0.3 % (0.1-2.0); Eosinophils % 0.4 % (0.1-12.0); Hematocrit 33.6 % (37.0-47.0); Hemoglobin 10.4 g/dL (12.2-16.2); Lymphocytes # 1.4 K/mm3 (0.7-4.5); Lymphocytes % 15.4 % (10-50); Mean Corpuscular HGB Conc 31.1 g/dL (31.8-35.4); Mean Corpuscular Volume 92.4 fl (81-99); Mean Platelet Volume 7.6 fl (7.4-10.4); Monocytes # 0.6 K/mm3 (0.1-1.0); Neutrophils # 6.9 K/mm3 (1.8-7.8); Platelet Count 242 K/mm3 (142-424); Red Blood Count 3.63 M/mm3 (4.20-5.40); Red Cell Distribution Width 13.2 % (11.5-17.5); White Blood Count 8.9 K/mm3 (4.8-10.8)
[2019-09-08 06:27] LABS: Anion Gap 11.8 mEq/L (5-15); Calcium 8.3 mg/dL (8.5-10.1)
--- NOTE | 2019-09-08 08:45 | Progress Note ---
Internal Medicine - PN: Subj *Date: 09/08/19 *Time: 08:44 Interval history: Internal medicine follow-up consult. Patient did well overnight. Sitting up in a chair. About to start physical therapy. Exam Vital signs and Labs for Last 24 Hours: Temp Pulse Resp BP Pulse Ox 98.9 F 113 H 20 136/72 96 09/08/19 08:00 09/08/19 08:00 09/08/19 08:00 09/08/19 08:00 09/08/19 08:00 Laboratory Results - last 24 hr 09/07/19 08:12: Urine Color Yellow, Urine Appearance Clear, Urine pH 6.0, Ur Specific Prescott 1.025, Urine Protein Negative, Urine Glucose (UA) Negative, Urine Ketones Negative, Urine Blood Negative, Urine Nitrate Negative, Urine Bilirubin Negative, Urine Urobilinogen 0.2, Ur Leukocyte Esterase Negative, Urine RBC 5-10, Ur Squamous Epith Cells 3-5, Urine Bacteria Trace, Urine Mucus 3+ 09/08/19 06:04: WBC 8.9, RBC 3.63 L, Hgb 10.4 L, Hct 33.6 L, MCV 92.4, MCH 28.7, MCHC 31.1 L, RDW 13.2, Plt Count 242, MPV 7.6, Neut % (Auto) 77.0, Lymph % (Auto) 15.4, Dolores % (Auto) 7.0, Eos % (Auto) 0.4, Baso % (Auto) 0.3, Neut # (Auto) 6.9, Lymph # (Auto) 1.4, Dolores # (Auto) 0.6, Eos # (Auto) 0.0, Baso # (Auto) 0.0 09/08/19 06:04: Sodium 136, Potassium 3.8, Chloride 102, Carbon Dioxide 26, Anion Gap 11.8, BUN 15, Creatinine 0.95, Estimated Creat Clear 83, Estimated GFR 58 L, Est GFR ( Amer) 70, Glucose 109 H, Calcium 8.3 L I & O for Last 24 hours: Intake & Output 09/05/19 09/06/19 09/07/19 09/08/19 11:59 11:59 11:59 11:59 Intake Total 5253 / 5253 Output Total 250 / 250 340 / 340 Balance -250 / -250 4913 / 4913 Weight 219 lb 227 lb 3 oz Narrative: Patient is up in chair, alert, oriented. No JVD. Lungs have some rhonchi but clear with a deep breath. After good instruction she was able to pull 1000 mL's on the incentive spirometer. Knees and braces. No distal edema. Assessment and Plan (1) Degenerative arthritis of right knee Current visit: Yes Status: Acute Category: Medical Code(s): M17.11 - Unilateral primary osteoarthritis, right knee (2) Total knee replacement status Current visit: Yes Status: Acute Category: Surgical Code(s): Z96.659 - Presence of unspecified artificial knee joint (3) COPD (chronic obstructive pulmonary disease) Current visit: Yes Status: Chronic Category: Medical Code(s): J44.9 - Chronic obstructive pulmonary disease, unspecified (4) GEOVANNY (generalized anxiety disorder) Current visit: Yes Status: Chronic Category: Medical Code(s): F41.1 - Generalized anxiety disorder - Assessment and plan all Dx Assessment and Plan for all problems:: Improving.. close f/u - no changes in meds.
--- NOTE | 2019-09-08 08:59 | Pharmacy Consult Notes ---
[facility] VTE Monitoring - Patient Demographics Admission date: 09/07/19 Report Date: 09/08/19 Time: 08:59 Allergies/Adverse Reactions: Patient Allergies Penicillins [PENICILLINS] Allergy (Mild, Verified 09/07/19 13:18) Unknown allergy reaction cefaclor [From CECLOR] Allergy (Unknown, Verified 09/07/19 13:18) Unknown allergy reaction levofloxacin [From Levaquin] Allergy (Unknown, Verified 09/07/19 13:18) Dizziness Height: 1.65 m Weight: 103.051 kg Patient Problems: Current Active Problems Degenerative arthritis of right knee (Acute) Total knee replacement status (Acute) COPD (chronic obstructive pulmonary disease) (Chronic) GEOVANNY (generalized anxiety disorder) (Chronic) GEOVANNY (generalized anxiety disorder) (Acute) - VTE Risk Labs: VTE Related Lab Results Hgb 10.4 g/dL (12.2-16.2) L 09/08/19 06:04 Hct 33.6 % (37.0-47.0) L 09/08/19 06:04 Plt Count 242 K/mm3 (142-424) 09/08/19 06:04 BUN 15 mg/dL (7-18) 09/08/19 06:04 Creatinine 0.95 mg/dL (0.55-1.02) 09/08/19 06:04 Estimated Creat Clear 83 mL/min (50-200) 09/08/19 06:04 Was VTE Risk Assessment Performed: Yes VTE Score: 5 VTE Risk Level: Low Risk - Prophylaxis VTE Prophylaxis Ordered?: Yes Types of VTE Prophylaxis: IPCS Thigh High, Pharmacological Location of Applied Device: Left Leg Pharmacologic Type: Enoxaparin - VTE Diagnosis Confirmed Treatment or plan recommended: Continue Current Treatment
--- NOTE | 2019-09-08 09:55 | Progress Note ---
[facility] Anesthesia Record Part II Discharge Time: 12:25 Destination: floor PACU nurse assessment reviewed?: Yes Patient Condition:: Good Anesthesia Complications:: None Swallowing reflex intact?: Yes Cyanosis?: No Blood Pressure: 137/76 Pulse Rate: 113 Temperature: 98 F Mental Status: Alert & Oriented Pain level:: 4 Nausea and/or vomitting:: None Intake, IV Amount: 2,000
--- NOTE | 2019-09-08 10:53 | Progress Note ---
Subjective Date: 09/08/19 Time: 10:00 Principal diagnosis: s/p R TKA Interval history: The patient is doing well this morning. Her spinal + nerve block have worn off and pain in the R knee has increased; despite this she remains comfortable. Afebrile, vitals stable. She had slight wheezing in PACU but a nebulizer treatment was given and her home inhalers restarted. PN: Obj Ex Vital signs: Temp Pulse Resp BP Pulse Ox 98 F 113 H 20 137/76 96 09/08/19 09:55 09/08/19 09:55 09/08/19 08:00 09/08/19 09:55 09/08/19 08:00 - Constitutional no acute distress - Routine HEENT Exam Head: Present: normocephalic Eye: Present: EOMI ENT: Present: mucous membranes moist - Routine Respiratory Exam Present: CTA bilaterally. Absent: wheezes, diminished air movement - Routine Cardiovascular Exam Present: RRR - Routine Abdominal Exam Present: soft. Absent: tenderness - Routine Extremities Exam Comments: RLE dressings c/d/i, no strikethrough; polar care device in place +DF/PF/EHL RLE SILT distally RLE palpable pedal pulses RLE, foot warm R calf soft, non-tender; compressible - Routine Skin Exam Present: warm - Routine Neurological Exam Present: alert, oriented X3, moving all extremities, normal tone, hearing grossly intact, normal speech. Absent: sensory deficit, motor deficit, altered mental status - Routine Psychiatric Exam Present: normal affect - Urinary Catheter Management Carlson Cath placed during this visit: no Progress Note: A&P (1) Degenerative arthritis of right knee Status: Acute Current Visit: Yes (2) Total knee replacement status Status: Acute Current Visit: Yes (3) COPD (chronic obstructive pulmonary disease) Status: Chronic Current Visit: Yes (4) GEOVANNY (generalized anxiety disorder) Status: Chronic Current Visit: Yes Assessment and Plan for All Diagnoses:: 74yo F POD #1 s/p R TKA -- continue PT/OT, WBAT RLE -- cryotherapy w/polar care device -- DVT prophy: lovenox + SCDs -- continue home meds -- continue to encourage IS 10x per hour -- pain control; norco PRN + morphine for breakthrough only, toradol x24hr -- finish 24hr prophy antibiotics -- dispo planning: the patient initially wanted to go [facility] but there are no beds available, so we are looking into beds in [place]
[2019-09-09 07:22] LABS: Anion Gap 10.8 mEq/L (5-15)
[2019-09-09 07:24] LABS: Basophils % 0.4 % (0.1-2.0); Eosinophils % 0.4 % (0.1-12.0); Hemoglobin 9.6 g/dL (12.2-16.2); Lymphocytes # 1.5 K/mm3 (0.7-4.5); Lymphocytes % 17.6 % (10-50); Mean Corpuscular HGB Conc 32.1 g/dL (31.8-35.4); Mean Corpuscular Volume 91.3 fl (81-99); Mean Platelet Volume 7.8 fl (7.4-10.4); Monocytes # 0.5 K/mm3 (0.1-1.0); Monocytes % 5.9 % (1.7-9.3); Neutrophils # 6.5 K/mm3 (1.8-7.8); Neutrophils % 75.7 % (37.0-80.0); Platelet Count 231 K/mm3 (142-424); Red Blood Count 3.29 M/mm3 (4.20-5.40); Red Cell Distribution Width 13.1 % (11.5-17.5); White Blood Count 8.6 K/mm3 (4.8-10.8)
--- NOTE | 2019-09-09 07:48 | Progress Note ---
Internal Medicine - PN: Subj *Date: 09/09/19 *Time: 07:47 Interval history: Follow-up internal medicine consult note. Patient did well overnight. Ambulating well with assistance. Able to pull 1500 mL's on incentive spirometry. Exam Vital signs and Labs for Last 24 Hours: Temp Pulse Resp BP Pulse Ox 97.9 F 98 H 16 150/65 H 91 L 09/09/19 04:00 09/09/19 06:21 09/09/19 04:00 09/09/19 04:00 09/09/19 06:21 Laboratory Results - last 24 hr 09/09/19 06:50: WBC 8.6, RBC 3.29 L, Hgb 9.6 L, Hct 30.0 L, MCV 91.3, MCH 29.3, MCHC 32.1, RDW 13.1, Plt Count 231, MPV 7.8, Neut % (Auto) 75.7, Lymph % (Auto) 17.6, Stephenson % (Auto) 5.9, Eos % (Auto) 0.4, Baso % (Auto) 0.4, Neut # (Auto) 6.5, Lymph # (Auto) 1.5, Stephenson # (Auto) 0.5, Eos # (Auto) 0.0, Baso # (Auto) 0.0 09/09/19 06:50: Sodium 136, Potassium 3.8, Chloride 102, Carbon Dioxide 27, Anion Gap 10.8, BUN 14, Creatinine 0.87, Estimated Creat Clear 84, Estimated GFR 64, Est GFR ( Amer) 77, Glucose 135 H, Calcium 8.0 L I & O for Last 24 hours: Intake & Output 09/06/19 09/07/19 09/08/19 09/09/19 11:59 11:59 11:59 11:59 Intake Total 7253 / 7253 2902 / 2902 Output Total 250 / 250 340 / 340 840 / 840 Balance -250 / -250 6913 / 6913 2061 Weight 219 lb 227 lb 3 oz 230 lb 4 oz Narrative: Patient is up in the chair, alert. Pleasant. Lungs have good air movement, heart rate regular. No murmurs. Abdomen soft, no edema. Assessment and Plan (1) Degenerative arthritis of right knee Current visit: Yes Status: Acute Category: Medical Code(s): M17.11 - Unilateral primary osteoarthritis, right knee (2) Total knee replacement status Current visit: Yes Status: Acute Category: Surgical Code(s): Z96.659 - Presence of unspecified artificial knee joint (3) COPD (chronic obstructive pulmonary disease) Current visit: Yes Status: Chronic Category: Medical Code(s): J44.9 - Chronic obstructive pulmonary disease, unspecified (4) GEOVANNY (generalized anxiety disorder) Current visit: Yes Status: Chronic Category: Medical Code(s): F41.1 - Generalized anxiety disorder - Assessment and plan all Dx Assessment and Plan for all problems:: Overall patient is doing well, has been off cigarettes since September 01. I encouraged her and continuing cessation efforts. She will be discharged today. I will recommend that she sees Connie Hare in my office in the end of September.
--- NOTE | 2019-09-09 16:24 | Progress Note ---
Subjective Date: 09/09/19 Time: 12:00 Principal diagnosis: s/p R TKA Interval history: The patient is doing well this afternoon. She has pain in the R knee but she continues to participate and performed well with PT. She walked 250' during her session this morning. Denies chest pain, shortness of breath, n/v/d, numbness/tingling in RLE, fevers/chills, or drainage from her incision. PN: Obj Ex Vital signs: Temp Pulse Resp BP Pulse Ox 97.7 F 103 H 18 147/70 H 93 L 09/09/19 15:36 09/09/19 15:36 09/09/19 15:36 09/09/19 15:36 09/09/19 15:36 - Constitutional no acute distress - Routine HEENT Exam Head: Present: normocephalic Eye: Present: EOMI ENT: Present: mucous membranes moist - Routine Respiratory Exam Present: CTA bilaterally - Routine Cardiovascular Exam Present: RRR - Routine Abdominal Exam Present: soft. Absent: tenderness - Routine Extremities Exam Comments: RLE dressings c/d/i, no strikethrough; polar care device in place ARIELA wrap/webril removed, inner (Silverlon) dressing left intact; mild scattered ecchymosis anteriormedial/posterior knee mild-moderate soft tissue swelling R knee +DF/PF/EHL RLE SILT distally RLE palpable pedal pulses RLE, foot warm R calf soft, non-tender; compressible - Routine Skin Exam Present: warm - Routine Neurological Exam Present: alert, oriented X3, moving all extremities, normal tone, hearing grossly intact, normal speech. Absent: sensory deficit, motor deficit, altered mental status - Routine Psychiatric Exam Present: normal affect - Urinary Catheter Management Carlson Cath placed during this visit: no Progress Note: A&P (1) Degenerative arthritis of right knee Status: Acute Current Visit: Yes (2) Total knee replacement status Status: Acute Current Visit: Yes (3) COPD (chronic obstructive pulmonary disease) Status: Chronic Current Visit: Yes (4) GEOVANNY (generalized anxiety disorder) Status: Chronic Current Visit: Yes Assessment and Plan for All Diagnoses:: 74yo F POD #2 s/p R TKA -- continue PT/OT, WBAT RLE -- cryotherapy w/polar care device -- DVT prophy: lovenox + SCDs -- continue home meds -- continue to encourage IS 10x per hour -- pain control; norco PRN + morphine for breakthrough only -- dispo: anticipate d/c to SNF tomorrow
--- NOTE | 2019-09-10 11:37 | Discharge Summary ---
General - General Admission date:: 09/07/19 Discharge date: 09/10/19 HPI HPI: 74yo F with tricompartmental DJD of the R knee, refractory to conservative therapy. She has tried the following for her knee: steroid injection x2, celebrex, NSAIDs, tylenol, ice, heat, topical creams, and bracing with no improvement in her pain. BMI is 36.4. Medical history is significant for COPD, GERD, HTN, anxiety, parkinsons. She is a smoker and has smokes between 1-1.5 ppd for the past 50 years. DEXA scan was performed in September 2018 = T-score -1.5; osteopenia. I discussed treatment options and she has elected to proceed with TKA; the pain has become so severe that it is inhibiting her ability to perform ADLs and is adversely affecting her quality of life. We discussed at length the surgical technique and expected perioperative course, including length of hos pitalization, need for postoperative physical therapy, use of anticoagulants, expected level of pain, and total length of recovery. I also explained the potential risks of surgery, including bleeding, infection, fracture, wound healing complications, need for revision surgery, continued pain post- operatively, DVT/PE, and risks of both general and regional anesthesia, including nerve damage, heart attack, stroke and even . The patient vocalized understanding of these risks and has agreed to proceed with surgery; informed consent was obtained. 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 She held her aspirin, fish oil and celebrex x1 week pre-op. All labs/tests were within acceptable limits and she was cleared by her PCP for surgery. Hospital Course Hospital Course: R TKA was performed 09/07/2019 without complication. The patient had a spinal anesthetic for the procedure with an intra-operative periarticular injection, augmented with an adductor canal block in PACU. The patient was admitted to the med-surg floor post-operatively where her home medications were restarted and both DVT/antibiotic prophylaxis ordered. She wore SCDs and used an IS throughout her stay. Carlson was d/c on POD 0. She tolerated PO intake and had good UOP throughout her stay. Vitals remained stable and labs within acceptable limits. She was evaluated by her PCP's team and found to be medically appropriate for d/c on POD 3. Objective Vital signs: Temp Pulse Resp BP Pulse Ox 97.8 F 104 H 22 111/50 L 95 09/10/19 08:00 09/10/19 08:00 09/10/19 08:00 09/10/19 08:00 09/10/19 08:00 no acute distress - *Routine HEENT Exam Head: Present: normocephalic Eye: Present: EOMI ENT: Present: mucous membranes moist - *Routine Respiratory Exam Present: CTA bilaterally - *Routine Cardiovascular Exam Present: RRR - *Routine Abdominal Exam Present: soft. Absent: tenderness - *Routine Extremities Exam Comments: RLE dressings c/d/i, no strikethrough; polar care device in place mild scattered ecchymosis anteriormedial/posterior knee mild-moderate soft tissue swelling R knee silverlon dressing removed, surgical incision c/d/i, subcuticular sutures with Prineo in place, no erythema/drainage +DF/PF/EHL RLE SILT distally RLE palpable pedal pulses RLE, foot warm R calf soft, non-tender; compressible - *Routine Skin Exam Present: warm - *Routine Neurological Exam Present: alert, oriented X3, moving all extremities, normal tone, hearing grossly intact, normal speech. Absent: sensory deficit, motor deficit, altered mental status - Routine Psychiatric Exam Present: normal affect Results Completed studies during hospitalization [Text1]: Laboratory Tests 09/07/19 09/08/19 09/08/19 08:12 06:04 06:04 WBC 8.9 RBC 3.63 L Hgb 10.4 L Hct 33.6 L MCV 92.4 MCH 28.7 MCHC 31.1 L RDW 13.2 Plt Count 242 MPV 7.6 Neut % (Auto) 77.0 Lymph % (Auto) 15.4 [place] % (Auto) 7.0 Eos % (Auto) 0.4 Baso % (Auto) 0.3 Neut # (Auto) 6.9 Lymph # (Auto) 1.4 [place] # (Auto) 0.6 Eos # (Auto) 0.0 Baso # (Auto) 0.0 Sodium 136 Potassium 3.8 Chloride 102 Carbon Dioxide 26 Anion Gap 11.8 BUN 15 Creatinine 0.95 Estimated Creat Clear 83 Estimated GFR 58 L Est GFR ( Amer) 70 Glucose 109 H Calcium 8.3 L Urine Color Yellow Urine Appearance Clear Urine pH 6.0 Ur Specific [place] 1.025 Urine Protein Negative Urine Glucose (UA) Negative Urine Ketones Negative Urine Blood Negative Urine Nitrate Negative Urine Bilirubin Negative Urine Urobilinogen 0.2 Ur Leukocyte Esterase Negative Urine RBC 5-10 Ur Squamous Epith Cells 3-5 Urine Bacteria Trace Urine Mucus 3+ 09/09/19 09/09/19 06:50 06:50 WBC 8.6 RBC 3.29 L Hgb 9.6 L Hct 30.0 L MCV 91.3 MCH 29.3 MCHC 32.1 RDW 13.1 Plt Count 231 MPV 7.8 Neut % (Auto) 75.7 Lymph % (Auto) 17.6 [place] % (Auto) 5.9 Eos % (Auto) 0.4 Baso % (Auto) 0.4 Neut # (Auto) 6.5 Lymph # (Auto) 1.5 [place] # (Auto) 0.5 Eos # (Auto) 0.0 Baso # (Auto) 0.0 Sodium 136 Potassium 3.8 Chloride 102 Carbon Dioxide 27 Anion Gap 10.8 BUN 14 Creatinine 0.87 Estimated Creat Clear 84 Estimated GFR 64 Est GFR ( Amer) 77 Glucose 135 H Calcium 8.0 L Urine Color Urine Appearance Urine pH Ur Specific [place] Urine Protein Urine Glucose (UA) Urine Ketones Urine Blood Urine Nitrate Urine Bilirubin Urine Urobilinogen Ur Leukocyte Esterase Urine RBC Ur Squamous Epith Cells Urine Bacteria Urine Mucus - Imaging and Cardiology TESTING Status: image reviewed by me (XR R knee w/TKA well-positioned ) DS: Diagnosis - Discharge Diagnosis (1) Degenerative arthritis of right knee Status: Acute (2) Total knee replacement status Status: Acute (3) COPD (chronic obstructive pulmonary disease) Status: Chronic (4) GEOVANNY (generalized anxiety disorder) Status: Chronic Discharge Plan - Patient Discharge Instructions ACTIVITY: Continue current activity DIET: continue same diet Additional Instructions: -- continue physical therapy at [facility] -- lovenox x12 more days, then start 1 aspirin daily (resume baseline aspirin) -- ice frequently with polar care device -- ok to shower; remove dressing for brief shower, then cover with dry dressing (change daily) -- continue home medications; pain Rx given -- f/u with Dr. Muñoz as scheduled; at 2 weeks post-op Patient Instructions: Knee Replacement, DI for Knee Replacement, DI for Surgical Site Infection, Enoxaparin Injection - Follow up Plan Follow up with: Mala Muñoz MD [Physician] - 09/24/19 10:15 am (x-rays prior) Yo Parham MD [Primary Care Provider] - Disposition: Xfer [facility] Home Medications: Home Medications Medication Instructions Recorded Confirmed Type Albuterol Sulfate [Albuterol 2.5 mg IH Q6HP PRN 10/26/17 09/07/19 History 0.083% 2.5mg/3mL neb] Pravastatin Sodium 80 mg PO HS 10/26/17 09/07/19 History Tiotropium [place] [Spiriva 2 puffs IH DAILY 10/26/17 09/07/19 History Respimat] Famotidine 40 mg PO HS 02/02/18 09/07/19 History calcium carbonate 600 mg calcium 600 mg PO BID 08/09/19 09/07/19 History (1,500 mg) tablet Buspirone HCl [Buspar 5mg tablet] 10 mg PO BID 09/07/19 09/07/19 History Ergocalciferol (Vitamin D2) 50,000 units PO WEEKLY 09/07/19 09/07/19 History [Vitamin D2] Escitalopram Oxalate [Lexapro] 20 mg PO DAILY 09/07/19 09/07/19 History Fluticasone/Vilanterol [Breo 1 puff IH DAILY 09/07/19 09/07/19 History Ellipta 100-25 Mcg INH] Furosemide [Furosemide 20mg Tab] 20 mg PO DAILYP PRN 09/07/19 09/07/19 History Losartan/Hydrochlorothiazide 1 each PO DAILY 09/07/19 09/07/19 History [Hyzaar 100-25 Tablet] Vitamin E (Dl,Tocopheryl Acet) 1,600 unit PO DAILY 09/07/19 09/07/19 History [Vitamin E 400 IUnits capsule] Enoxaparin Sodium [Lovenox 30 mg SQ Q12H 12 Days syringe 09/10/19 Rx 30mg/0.3mL syringe] Hydrocod/Acet 5/325 mg [[place] 1 - 2 tab PO Q4HP PRN #30 tab 09/10/19 Rx 5/325mg tablet] hydroCHLOROthiazide [HCTZ 12.5mg 12.5 mg PO DAILY capsule 09/10/19 Rx capsule] Prescriptions/Medication Reconciliation: New hydroCHLOROthiazide [HCTZ 12.5mg capsule] 12.5 mg PO DAILY capsule Enoxaparin Sodium [Lovenox 30mg/0.3mL syringe] 30 mg SQ Q12H 12 Days syringe Hydrocod/Acet 5/325 mg [[place] 5/325mg tablet] 1 - 2 tab PO Q4HP PRN #30 tab PRN Reason: Moderate To Severe Pain Continued calcium carbonate 600 mg calcium (1,500 mg) tablet 600 mg PO BID Albuterol Sulfate [Albuterol 0.083% 2.5mg/3mL neb] 2.5 mg IH Q6HP PRN PRN Reason: Shortness Of Breath Or Wheezing Famotidine 40 mg PO HS Ergocalciferol (Vitamin D2) [Vitamin D2] 50,000 units PO WEEKLY Fluticasone/Vilanterol [Breo Ellipta 100-25 Mcg INH] 1 puff IH DAILY Furosemide [Furosemide 20mg Tab] 20 mg PO DAILYP PRN PRN Reason: Edema Losartan/Hydrochlorothiazide [Hyzaar 100-25 Tablet] 1 each PO DAILY Vitamin E (Dl,Tocopheryl Acet) [Vitamin E 400 IUnits capsule] 1,600 unit PO DAILY Tiotropium [place] [Spiriva Respimat] 2 puffs IH DAILY Pravastatin Sodium 80 mg PO HS Buspirone HCl [Buspar 5mg tablet] 10 mg PO BID Escitalopram Oxalate [Lexapro] 20 mg PO DAILY Discontinued aspirin 81 mg chewable tablet 81 mg PO DAILY omega 8-yrd-wau-fish oil 1,000 mg (120 mg-180 mg) capsule 2 cap PO DAILY mupirocin 2 % topical ointment 1 applic TOPICAL BID #15 g Celecoxib 200 mg PO DAILY - Problem Reconciliation Problems Reviewed?: Yes
== END 2019-09-10 12:55 ==
LOC: 2ND 06:12 → OR 06:12 → 2ND 13:05
PROVIDERS: ADMIT Orthopaedic Surgery; ATTEND Orthopaedic Surgery
CPT/HCPCS: 36415; 73560; 80048; 81001; 85025; 94640; 94761; 96374; 97116; 97161; 97166; 97535; C1713; C1776; G0378; J3370; S0077

== ENCOUNTER → 2019-09-24 09:21 | Outpatient (CLI) | payer MEDICARE, MEDICAID, SELFPAY ==
--- NOTE | 2019-09-24 09:27 | XR_ITS ---
PROCEDURE: XR KNEE RT 4V CLINICAL INDICATION: Post op: Rt TKA Follow-up total knee replacement COMPARISON: [id number] XR knee LT 4V from 11/26/2018 [id number] XR knee RT 4V from 11/26/2018 XR KNEE RT 4V from 08/09/2019 XR KNEE RT 2V from 09/07/2019 FINDINGS: Good alignment status post total knee replacement. Soft tissue gas no longer apparent. No evidence of prosthesis malfunction. IMPRESSION: Good alignment status post total knee replacement Dictated by: Wellington Burdick MD 09/24/2019 10:43 Electronically signed by Wellington Burdick MD in [place] 09/24/2019 10:43
== END ==
PROVIDERS: PCP Nurse Practitioner Family; Visit Provider Orthopaedic Surgery
DX: M17.11 Unilateral primary osteoarthritis, right knee (principal)
CPT/HCPCS: 73564

== ENCOUNTER → 2019-10-04 13:34 | Outpatient (CLI) | payer MEDICARE, MEDICAID, SELFPAY ==
--- NOTE | 2019-10-04 13:43 | XR_ITS ---
PROCEDURE: XR KNEE RT 4V CLINICAL INDICATION: RT knee pain since SX COMPARISON: [id number] XR knee RT 4V from 11/26/2018 XR KNEE RT 4V from 08/09/2019 XR KNEE RT 2V from 09/07/2019 XR KNEE RT 4V from 09/24/2019 FINDINGS: Status post total knee replacement with good alignment. No orthopedic the complications apparent. Other findings:None. IMPRESSION: Status post total knee replacement with no acute finding Dictated by: Wellington Burdick MD 10/04/2019 14:38 Electronically signed by Wellington Burdick MD in [place] 10/04/2019 14:38
== END ==
PROVIDERS: PCP Nurse Practitioner Family; Visit Provider Orthopaedic Surgery
DX: M25.561 Pain in right knee (principal); Z96.651 Presence of right artificial knee joint
CPT/HCPCS: 73564

== ENCOUNTER → 2019-10-25 08:25 | Outpatient (CLI) | payer MEDICARE, MEDICAID, SELFPAY ==
--- NOTE | 2019-10-25 08:34 | XR_ITS ---
PROCEDURE: XR KNEE RT 4V CLINICAL INDICATION: post total knee Follow-up total knee replacement COMPARISON: XR KNEE RT 4V from 08/09/2019 XR KNEE RT 2V from 09/07/2019 XR KNEE RT 4V from 09/24/2019 XR KNEE RT 4V from 10/04/2019 FINDINGS: Status post total knee replacement with good alignment. No obvious complications. Other findings:None. IMPRESSION: No change status post total knee replacement with good alignment Dictated by: Wellington Burdick MD 10/25/2019 08:53 Electronically signed by Wellington Burdick MD in [place] 10/25/2019 08:53
== END ==
PROVIDERS: PCP Nurse Practitioner Family; Visit Provider Orthopaedic Surgery
DX: M17.11 Unilateral primary osteoarthritis, right knee (principal)
CPT/HCPCS: 73564

== ENCOUNTER 2019-10-26 09:00 | Outpatient (RCR) | payer MEDICARE, MEDICAID, SELFPAY ==
--- NOTE | 2019-10-12 10:20 | HMH.PTOPEV ---
PT Outpatient Evaluation Rehab PT Outpatient Evaluation Start: 10/12/19 08:48 Freq: Status: Active Protocol: Document 10/12/19 09:42 ALANALESLI (Rec: 10/12/19 10:20 ALANAEMMANUELSHIKHA [id number]) Electronically Signed By Griffin Lerma, PT 10/12/19 09:42 Outpatient Therapy Subjective History Subjective History Patient is a 74 year old female presenting to outpatient PT with reports of R post-surgical knee pain S/P R TKA 09/07/19 (5w S/P). Pt reports hx of chronic knee pain prior to surgery. She has been receieving home health PT services since discharge from [facility]. Pt reports that approximately 2 weeks ago she was going to sit down on the couch and felt a pop approx 6 inches above her incision. She has experienced increased pain levels since. She reports compliance with HEP from home health. Comorbidities include hx of HTN and lumbar spine pain stimulator implant. Chief Complaint Pain,Stiff,Swelling Symptom Type Ache,Tingling,Shooting Symptoms Relieved By Ice,Prescription Meds Symptoms Aggravated By Standing,Physical Activity, Walking Prior Functional Limitations Housework,Standing,Squatting, Recreation Activity,Walking, Stairs Current Functional Limitations Housework,Standing,Squatting, Recreation Activity,Walking, Stairs Symptom Description Intermittent Level of pain today (0-10) 7 Pain scale - at its best (0-10) 0 Pain scale - at its worst (0-10) 9 Hip/Knee Eval Gait Observation General Gait Pattern Observation Antalgic Gait,Decrease Weight Bear (R) Assistive Device Assistive Devices None / NA Palpation Tenderness right Knee Palpation Finding Tenderness Knee Palpation Overall Comment M/L joint line, quad tendon MMT Hip Flexion Strength Grade 3+ Fair+ Hip Abduction Strength Grade 4- Good- Hip Adduction Strength Grade 4- Good- Hip Extension Strength Grade 3+ Fair+ Hip External Rotation Strength Grade 3+ Fair+ Hip Internal Rotation Strength Grade 3+ Fair+ Knee Extension Strength Grade 4- Good- Knee Flexion
== END 2019-10-26 09:05 | disposition home or self-care (01) ==
LOC: PT 09:00
PROVIDERS: Visit Provider Orthopaedic Surgery
DX: M17.11 Unilateral primary osteoarthritis, right knee (principal)
CPT/HCPCS: 97010; 97014; 97110; 97140; 97163; G0283

== ENCOUNTER → 2019-11-22 08:40 | Outpatient (CLI) | payer MEDICARE, MEDICAID, SELFPAY ==
--- NOTE | 2019-11-22 08:46 | XR_ITS ---
PROCEDURE: XR KNEE RT 3V CLINICAL INDICATION: post op rt TKA COMPARISON: XR KNEE RT 2V from 09/07/2019 XR KNEE RT 4V from 09/24/2019 XR KNEE RT 4V from 10/04/2019 XR KNEE RT 4V from 10/25/2019 FINDINGS: Status post total knee arthroplasty with good alignment. No change with no acute finding. Other findings:None. IMPRESSION: Good alignment status post total knee arthroplasty Dictated by: Wellington Burdick MD 11/22/2019 11:40 Electronically signed by Wellington Burdick MD in [place] 11/22/2019 11:40
== END ==
PROVIDERS: PCP Nurse Practitioner Family; Visit Provider Orthopaedic Surgery
DX: Z96.659 Presence of unspecified artificial knee joint (principal); M17.11 Unilateral primary osteoarthritis, right knee
CPT/HCPCS: 73562

== ENCOUNTER 2019-11-22 09:46 | Outpatient (RCR) | payer MEDICARE, MEDICAID, SELFPAY | END 2019-11-22 10:30 | disposition home or self-care (01) | LOC: PT 09:46 | PROVIDERS: Visit Provider Orthopaedic Surgery | DX: M25.561 Pain in right knee (principal); Z96.651 Presence of right artificial knee joint | CPT/HCPCS: 97760 ==

== ENCOUNTER 2019-12-06 08:30 | Outpatient (RCR) | payer MEDICARE, MEDICAID, SELFPAY ==
--- NOTE | 2019-12-03 15:19 | HMH.PTOPEV ---
PT Outpatient Evaluation Rehab PT Outpatient Evaluation Start: 12/03/19 13:23 Freq: Status: Active Protocol: Document 12/03/19 13:23 RAVINDRA (Rec: 12/03/19 15:19 RAVINDRA [id number]) Electronically Signed By Emmanuel Thompson, PT 12/03/19 13:23 Outpatient Therapy Subjective History Subjective History Pt reports successful recovery and rehab following R TKA sx. on 09/07/19. Pt reports ' severe pop' while walking ~4-5 weeks ago, medial aspect R knee pain and instability. Pt reports 'I was doing great until this happened'. Chief Complaint Pain,Clicks,Gives out/Unstable ,Weakness Symptom Type Ache,Sharp,Dull Symptoms Relieved By Rest/Positioning Symptoms Aggravated By Standing,Walking Prior Functional Limitations Standing,Walking,Stairs Current Functional Limitations Standing,Walking,Stairs Symptom Description Constant but Variable Level of pain today (0-10) 5 Pain scale - at its best (0-10) 5 Pain scale - at its worst (0-10) 8 Hip/Knee Eval Gait Observation General Gait Pattern Observation Antalgic Gait Palpation Tenderness right Knee Palpation Finding Tenderness Knee Palpation Overall Comment 3/4 MCL MMT Hip Flexion Strength Grade 4 Good Hip Abduction Strength Grade 4 Good Hip Adduction Strength Grade 3 Fair Hip Extension Strength Grade 4 Good Hip External Rotation Strength Grade 3+ Fair+ Hip Internal Rotation Strength Grade 4 Good Knee Extension Strength Grade 5 Normal Knee Flexion Strength Grade 4- Good- ROM Knee Flexion Active Range of Motion ( 5-125 degrees) Knee Flexion Passive Range of Motion ( 0-130 degrees) Knee ROM Limitations Pain Outpatient Therapy Assessment Impairments Problems/Impairmments Palpation Tenderness,Impaired Range of Motion,Impaired Strength,Impaired Gait Pattern ,Impaired Walking,Impaired Standing,Impaired Stair Climbing,Subjective C/O Pain, Impaired Self Care/Self Management Prognosis Rehab Potential Good Clinical Impression Consistent with Diagnosis Yes Short Term Goals Number of Weeks 4 Decreased Palpation Tenderness Yes: 1-2/4 Increase Range of Motion Yes: 0-120 AROM Increase Strength Yes: 4/5 Increase Ability to Walk Yes: 30MIN I
== END 2019-12-06 09:30 | disposition home or self-care (01) ==
LOC: PT 08:30
PROVIDERS: PCP Nurse Practitioner Family; Visit Provider Orthopaedic Surgery
DX: M25.561 Pain in right knee (principal); Z96.651 Presence of right artificial knee joint
CPT/HCPCS: 97010; 97014; 97110; 97163; G0283

== ENCOUNTER → 2019-12-27 08:25 | Outpatient (CLI) | payer MEDICARE, MEDICAID, SELFPAY ==
--- NOTE | 2019-12-27 08:28 | XR_ITS ---
PROCEDURE: XR KNEE RT 3V CLINICAL INDICATION: sp RT TKA, sx 09/07/19 Follow-up total knee replacement COMPARISON: XR KNEE RT 4V from 09/24/2019 XR KNEE RT 4V from 10/04/2019 XR KNEE RT 4V from 10/25/2019 XR KNEE RT 3V from 11/22/2019 FINDINGS: No fracture or dislocation. No lytic or blastic change. There is normal mineralization. Status post total knee arthroplasty with good alignment Other findings:None. IMPRESSION: The no change status post total knee arthroplasty good alignment and no evidence of orthopedic complication Dictated by: Wellington Burdick MD 12/27/2019 09:28 Electronically signed by Wellington Burdick MD in [place] 12/27/2019 09:28
== END ==
PROVIDERS: PCP Nurse Practitioner Family; Visit Provider Orthopaedic Surgery
DX: S83.411A Sprain of medial collateral ligament of right knee, initial encounter; Z96.651 Presence of right artificial knee joint
CPT/HCPCS: 73562

== ENCOUNTER → 2020-07-03 12:58 | Outpatient (CLI) | payer MEDICARE, MEDICAID, SELFPAY ==
--- NOTE | 2020-07-03 13:07 | CT_ITS ---
PROCEDURE: CT LUNG SCREENING CLINICAL INDICATION: HX OF NICOTINE USE COMPARISON: No exams were available for comparison TECHNIQUE: The exam was performed on a GE Light Speed [address] scanner using 2.90 mGy CTDI. A low dose helical CT CHEST was performed on a multi-detector scanner. All CT scans at the facility use one or more dose reduction, viz: automated exposure control, ma/kV adjustment per patient size (including targeted exams where dose is matched to indication, i.e. head), or iterative reconstruction technique. The LDCT was performed in a facility that meets the criteria for the screening program. Data regarding this exam was submitted to ACR which is an approved registry. The order for this exam indicates that it came as a result of a lung cancer screening counseling shard decision-making visit that included all the elements required of such a visit including smoking cessation. The radiologist interpreting this exam meets the CMS criteria for the LDCT lung cancer screening program. The exam is reported using the Lung-RADS classification scale and reported to the ACR registry. NOTE: This study was performed for the specific purposes of lung cancer screening and is not an alternative to diagnostic chest CT. RADIATION DOSE: CTDI vol(CT dose Index-volume) = 2.90mG DLP (Dose Length Product) = 103.16 mGcm FINDINGS: Mild hyperinflation with attenuation of the peripheral pulmonary vessels consistent with COPD. Old granulomatous disease. Minimal atelectatic or fibrotic change in the lingula. No suspicious pulmonary nodule evident. OTHER FINDINGS: Mildly enlarged thyroid gland bilaterally. There is prominence of the main pulmonary artery at 3.6 cm with a pulmonary artery aorta ratio of greater than 1 suggesting pulmonary arterial hypertension. Neurostimulator device is present in the epidural region in the midthoracic spine. IMPRESSION: Lung-RADS Category 1 Negative Follow-up: Continue annual screening with LDCT in 12 months Other nonacute findings as described above including findings suggesting pulmonary arterial hypertension with COPD Dictated by: Wellington Burdick MD 10/13/2020 08:27 Wellington Burdick MD in [place] 10/13/2020 08:27
--- NOTE | 2020-07-03 13:08 | MM_ITS ---
PROCEDURE: MM DIG SCREENING MAMM BI W/CAD Digital Breast Tomosynthesis Included CLINICAL INDICATION: SCREENING There is no personal or family history of breast cancer COMPARISON: MG DMDXUWAR DIG MAMM-DX UNI RT W ADD VIEW from 05/15/2016 MG DMDXUWAR DIG MAMM-DX UNI RT W/AV W/CAD from 12/12/2016 MG SCBI MM Dig screening mamm BI w/CAD from 10/02/2018 TECHNIQUE: Standard CC and MLO images and 3D Tomosynthesis was obtained. R2 CAD reviewed. FINDINGS: Scattered diffuse fibroglandular densities are seen throughout both breast. There are couple of benign-appearing calcifications left breast. There is an asymmetric density outer quadrant right breast which actually is somewhat less prominent on today's study than on recent studies and has no suspicious characteristics. There is no suspicious lesion and no suspicious microcalcifications. IMPRESSION: Fibrofatty parenchyma with no suspicious lesions seen BI-RAD Category: 2 Benign Finding(s) FOLLOW-UP: 1YR 1 Year Follow-up (A letter has been sent to the patient regarding results of the study.) Dictated by: Dr. Paulo Gurrola MD 07/05/2020 13:56 Dr. Paulo Gurrola MD in [place] 07/05/2020 13:56
== END ==
PROVIDERS: PCP Nurse Practitioner Family; Visit Provider Nurse Practitioner Family
DX: Z12.31 Encounter for screening mammogram for malignant neoplasm of breast (principal); Z87.891 Personal history of nicotine dependence; Z12.2 Encounter for screening for malignant neoplasm of respiratory organs
CPT/HCPCS: 77063; 77067

== ENCOUNTER → 2021-02-01 09:27 | Outpatient (CLI) | payer MEDICARE, MEDICAID, SELFPAY ==
--- NOTE | 2021-02-01 09:35 | XR_ITS ---
PROCEDURE: XR SHOULDER RT MIN 2V CLINICAL INDICATION: RT SHOULDER JOINT PAIN ON MOVEMENT COMPARISON: No exams were available for comparison FINDINGS: The bony structures are intact, well-aligned, and normally mineralized. Degenerative changes of the glenohumeral and acromioclavicular joints are noted. Heterotopic ossification noted. Calcified granuloma in the right hemithorax. Visualized right lung is otherwise unremarkable. No significant soft tissue abnormality. IMPRESSION: Degenerative changes of the right shoulder joint. No acute fractures or dislocations. Dictated by: Benita Sweet 02/01/2021 12:41 Benita Sweet in [place] 02/01/2021 12:41
== END ==
PROVIDERS: PCP Nurse Practitioner Family; Visit Provider Nurse Practitioner Family
DX: M25.511 Pain in right shoulder (principal)
CPT/HCPCS: 73030

== ENCOUNTER 2021-02-14 10:00 | Outpatient (RCR) | payer MEDICARE, MEDICAID, SELFPAY ==
--- NOTE | 2021-01-17 11:40 | HMH.OTOPEV ---
OT Inpatient Evaluation Rehab OT Outpatient Eval Start: 01/17/21 11:26 Freq: Status: Active Protocol: Document 01/17/21 11:26 RMANDREA (Rec: 01/17/21 11:40 [facility] [id number]) Electronically Signed By Neto Gorman OT 01/17/21 11:26 Outpatient Therapy Subjective History Subjective History Pt is a 76 year old female who reports to initial therapy evaluation for bilateral shoulder pain. Pt explains both of her shoulders began having pain/stiffness ~2-3 months ago after moving. Her move required her to do constant lifting of totes and boxes. She feels she has strained her shoulders during this move. Pt does demonstrate with decreased AROM and strength of bilateral shoulders. However, it appears her right shoulder is more affected; she is right hand dominant. Pt will continue to be seen twice a week in order to address all deficits. Chief Complaint Pain,Stiff,Weakness Symptom Type Ache,Throb,Dull Symptoms Relieved By Rest/Positioning Symptoms Aggravated By Physical Activity,Lifting Prior Functional Limitations None Current Functional Limitations Reaching,Lifting,Housework, Sleeping,Recreation Activity Symptom Description Constant but Variable Level of pain today (0-10) 7 Pain scale - at its best (0-10) 3 Pain scale - at its worst (0-10) 10 Shoulder/Elbow Eval Shoulder Objective Measurements Shoulder ROM Left Shoulder Abduction Active Range of 110 degrees Motion (degrees) Shoulder Flexion Active Range of Motion 125 degrees (degrees) Query Text: Shoulder External Rotation Active Range 75 degrees of Motion (degrees) Shoulder Internal Rotation Active Range 65 degrees of Motion (degrees) Right Shoulder Abduction Active Range of 65 degrees Motion (degrees) Shoulder Flexion Active Range of Motion 80 degrees (degrees) Query Text: Shoulder External Rotation Active Range 45 degrees of Motion (degrees) Shoulder Internal Rotation Active Range 35 degrees of Motion (degrees) Shoulder MMT Left Shoulder Abduction Strength Grade
== END 2021-05-14 12:50 | disposition home or self-care (01) ==
LOC: OT 10:00
PROVIDERS: PCP Nurse Practitioner Family; Visit Provider Nurse Practitioner Family
DX: M25.511 Pain in right shoulder; M25.512 Pain in left shoulder
CPT/HCPCS: 97014; 97110; 97140; 97166; 97530; G0283

== ENCOUNTER → 2021-05-08 10:31 | Outpatient (CLI) | payer MEDICARE, SELFPAY ==
[2021-05-08 11:22] LABS: Basophils # 0.1 K/mm3 (0-0.2); Basophils % 1.1 % (0.1-2.0); Eosinophils # 0.1 K/mm3 (0.0-0.4); Eosinophils % 1.8 % (0.1-12.0); Hematocrit 42.5 % (37.0-47.0); Hemoglobin 13.6 g/dL (12.2-16.2); Lymphocytes # 2.7 K/mm3 (0.7-4.5); Lymphocytes % 40.6 % (10-50); Mean Corpuscular HGB Conc 31.9 g/dL (31.8-35.4); Mean Corpuscular Hemoglobin 29.1 pg (27.0-31.2); Mean Corpuscular Volume 91.2 fl (81-99); Mean Platelet Volume 7.9 fl (7.4-10.4); Monocytes # 0.4 K/mm3 (0.1-1.0); Monocytes % 5.3 % (1.7-9.3); Neutrophils # 3.4 K/mm3 (1.8-7.8); Neutrophils % 51.2 % (37.0-80.0); Platelet Count 272 K/mm3 (142-424); Red Blood Count 4.66 M/mm3 (4.20-5.40); White Blood Count 6.6 K/mm3 (4.8-10.8)
[2021-05-08 11:43] LABS: Chloride 108 mmol/L (98-107); Potassium 5.2 mmoL/L (3.5-5.1); Sodium 140 mmol/L (136-145)
[2021-05-08 11:46] LABS: Anion Gap 11.2 mEq/L (5-15); Blood Urea Nitrogen 14 mg/dl (7-17); Calcium 9.8 mg/dl (8.4-10.2); Carbon Dioxide 26 mmol/L (22.0-30.0); Estimated Glomerular Filt Rate 70 ml/min (>60); GFR (African American) 85 ML/MIN (>60); Glucose 89 mg/dl (74-100)
== END ==
PROVIDERS: Visit Provider Surgery
DX: Z01.812 Encounter for preprocedural laboratory examination (principal); Z20.822 Contact with and (suspected) exposure to COVID-19; M47.816 Spondylosis without myelopathy or radiculopathy, lumbar region
CPT/HCPCS: 36415; 80048; 85025; U0003

== ENCOUNTER 2021-05-09 09:03 | Day surgery (SDC) | payer OTHER, MEDICARE, SELFPAY ==
[2021-05-08 09:55] VITALS: BMI 33.4
--- NOTE | 2021-05-09 10:03 | PC.NURSE ---
called in RX for Bactrim DS 1 tab PO BID x7 days with no refills per MD order
[2021-05-09 10:05] VITALS: BP 172/72; PULSE 94; RESP 18; TEMP 36.8; O2SAT 96
--- NOTE | 2021-05-09 11:07 | HMH.ANESCL ---
[facility] Anesthesia Checklist - Patient Identification Patient Identification: Arm Band, Verbal (Name & ) - Structural Data Admitted From: Long-term Nursing Facility Planned Operative Procedure/s: stim. explant Consent for Planned Operative Procedure(s) Verified: Yes Verified Documents: History and Physical - NPO Status Verified Time NPO: 00:00 - Chart Verification Results Verified: CBC, BMP - Additional verifications Patient : No Anesthesia Reactions: No Hx Blood Transfusions: No Blood Transfusion Reaction: No Cephalosporin Allergy: No Previous Colonoscopy: Yes - Cardiovascular Assessment Heart Sounds: S1 & S2 Pulse Strength: Baseline Pulse Rhythm: Regular Peripheral Edema: No - Airway Assessment C-Spine Mobility Assessed: Yes TMJ Mobility Assessed: Yes Dentition: Edentulous - Neurological Assessment Level of Consciousness: Awake, Alert, Appropriate Hx Seizures: No Numbness or tingling in extremities: No - Anesthesia Plan Anesthesia Risk discussed: Yes Anesthesia Plan: Verified ASA Class: II Anesthesia Type: MAC [facility] History I have reviewed the patient's past medical history: Yes Medical History: Reports:: Anxiety, Chronic Obstructive Pulmonary Disease (COPD), Depression, Gastroesophageal Reflux Disease(GERD), Hyperlipidemia, Hypertension, MRSA Denies:: Cancer, Diabetes Mellitus Type 1, Diabetes Mellitus Type 2, Internal Pacemaker, Seizures *Have you ever received a pneumonia vaccine?: Yes *Have you received a flu vaccine this season?: No Other Medical History: Denies: Blood Transfusion Reaction Anesthesia experience/problems:: none Laterality Cases: Left: Breast Biopsy, Right: Total Knee Replacement Other Surgeries: Yes: Cardiac Catheterization, Cholecystectomy, Colonoscopy, Other. No: Pacemaker Amputation: No Fractures: No - *Social History Last grade of school completed: High school graduate Smoking Status: Current every day smoker Tobacco Type: cigarettes # Packs/Day (cigarettes): 2 Alcohol Intake: never Alcohol Intake Frequency:: holidays/special occasions only Substance Use Type: denies use *Occupational Status:: retired, disabled Housing: house Household Members: family *Travel in the last 8 weeks: None - Psychiatric History Pschychiatric History:: Reports:: Anxiety, Depression Family Hx:: Coronary Artery Disease, Cancer
--- NOTE | 2021-05-09 12:31 | P.OP_ITS ---
Date of procedure: 05/09/21 Pre-op Diagnosis:: Disease of the lumbar spine with radiculopathy?desires removal of pain stimulator generator Post-op Diagnosis:: Same Procedure performed:: Removal of pain stimulator generator Surgeon:: Dwight Resendiz MD [employer] DEVELOPER:: Richard Cardona, Liv Kearns, Hector Urena, Beau White, Jv Rivers, Michael Brito, Other Anesthesia: MAC Estimated blood loss (mL): 5 Operative findings:: Not applicable Operative note:: Patient was placed prone on the operating table and her back and flank regions were prepped and draped in sterile fashion. Once adequate IV sedation was obtained utilizing anesthesia and local anesthesia for local sedation an incision was made over the generator on the left flank and carried out the skin and subcutaneous tissues. Generator was delivered from the incision without difficulty. The leads were ligated at their exit from the pocket with the scissors and the 2 ends of the leads were sutured together with 0 silk ties. At this point the area was irrigated with antibiotic solution. The subcutaneous tissues approximated with stitches of 2-0 Vicryl. Skin was closed with interrupted stitches of 4-0 nylon. Sterile dressing and and a applied to the patient.. The patient tolerated procedure well and was taken to recovery in stable condition. Upon recovery the patient will be discharged home and will follow up in 1 week in 2 weeks at the surgeon at the pain clinic. Bactrim DS twice daily x1 week per protocol. The patient tolerated the procedure well Condition: stable Disposition: PACU Complications:: None
[2021-05-09 12:47] VITALS: BP 122/55; PULSE 97; RESP 18; TEMP 36.4; O2SAT 96
[2021-05-09 13:02] VITALS: BP 101/55; PULSE 98; RESP 18; TEMP 36.1; O2SAT 97
[2021-05-09 13:17] VITALS: BP 154/59; PULSE 94; RESP 18; TEMP 36.2; O2SAT 98
[2021-05-09 13:37] VITALS: BP 142/61; PULSE 91; RESP 18; O2SAT 98
--- NOTE | 2021-05-09 16:00 | SUR.OPER ---
Neurstimulator generator removed has SN: [id number]
== END 2021-05-09 13:30 | disposition home or self-care (01) ==
LOC: OR 09:05
PROVIDERS: PCP Nurse Practitioner Family; Visit Provider Surgery
PROC: (CPT 63661; principal; 2021-05-09 10:30)
DX: M51.36 Other intervertebral disc degeneration, lumbar region (principal); F41.9 Anxiety disorder, unspecified; J44.9 Chronic obstructive pulmonary disease, unspecified; F32.9 Major depressive disorder, single episode, unspecified; K21.9 Gastro-esophageal reflux disease without esophagitis; E78.5 Hyperlipidemia, unspecified; I10 Essential (primary) hypertension; Z86.14 Personal history of Methicillin resistant Staphylococcus aureus infection; Z90.49 Acquired absence of other specified parts of digestive tract; Z72.0 Tobacco use; Z80.9 Family history of malignant neoplasm, unspecified; Z82.49 Family history of ischemic heart disease and other diseases of the circulatory system
CPT/HCPCS: 63661; 63688; 96374; J3370

== ENCOUNTER → 2021-05-17 09:40 | Outpatient (POV) | payer OTHER, SELFPAY ==
[2021-05-17 09:56] VITALS: BP 131/92; PULSE 98; RESP 18; O2SAT 93; BMI 29.0
--- NOTE | 2021-05-17 12:29 | P.CONS_ITS ---
[facility] Pain Management SOAP Note Subjective:: Patient is a 76-year-old white female who presents today for follow-up. She recently had her spinal cord stimulator explanted. The patient was not getting any relief with the stimulator and did not feel that she wanted to keep the device. As result, she did undergo explant. Patient did have the device removed and is doing well at this time. She says her pain is a 0 out of 10 at this time. She does have sutures in place. Review of Systems General: No recent weight changes, no fever, no sleep disturbances Respiratory: No cough, no shortness of air, no recurring pulmonary infections Cardiovascular/peripheral vascular: No chest pain, no palpitations, no edema, no shortness of breath Gastrointestinal: No new onset incontinence, normal bowel movements reported Genitourinary: No new onset incontinence Musculoskeletal: Denies pain Psychiatric: [Normal mood/affect] Neurological: [Denies weakness in extremities], [denies balance issues] Objective:: Physical exam General: Alert and oriented x3, no acute distress, pleasant and cooperative, [on room air] Lungs: Respirations even and unlabored, symmetrical chest expansion Eyes: PERRL Musculoskeletal: Flexion and extension of [] [spine] nonguarded, strength in upper and lower extremities [5/5], normal gait noted Neurological: Speech clear, [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 Sutures intact incision open to air Assessment:: Degenerative disc disease lumbar spine with lumbar radiculopathy symptoms Plan:: We will plan to follow-up with the patient in 2 weeks for suture removal. She can contact the clinic she has an concerns before then. Patient has been instructed to contact the clinic with any concerns before the next appointment. Dr. Price has reviewed this note and agrees with this plan of care. This note was dictated using voice recognition software and make contain errors or omissions. [facility] History I have reviewed the patient's past medical history: Yes Medical History: Reports:: Anxiety, Chronic Obstructive Pulmonary Disease (COPD), Depression, Gastroesophageal Reflux Disease(GERD), Hyperlipidemia, Hypertension, MRSA Denies:: Cancer, Diabetes Mellitus Type 1, Diabetes Mellitus Type 2, Internal Pacemaker, Seizures *Have you ever received a pneumonia vaccine?: Yes *Have you received a flu vaccine this season?: Yes Other Medical History: Denies: Blood Transfusion Reaction Laterality Cases: Left: Breast Biopsy Other Surgeries: Yes: Cardiac Catheterization, Cholecystectomy, Colonoscopy, Other. No: Pacemaker Amputation: No Fractures: No - *Social History Smoking Status: Current every day smoker Tobacco Type: cigarettes # Packs/Day (cigarettes): 2 Alcohol Intake: never Alcohol Intake Frequency:: holidays/special occasions only Substance Use Type: denies use *Occupational Status:: unemployed Housing: house Household Members: family *Travel in the last 8 weeks: None - Psychiatric History Pschychiatric History:: Reports:: Anxiety, Depression Family Hx:: Coronary Artery Disease, Cancer
== END ==
PROVIDERS: Visit Provider Clinical Nurse Specialist Family Health
DX: M51.16 Intervertebral disc disorders with radiculopathy, lumbar region (principal)
CPT/HCPCS: 99212; G0463

== ENCOUNTER → 2021-06-12 10:47 | Outpatient (POV) | payer MEDICARE, MEDICAID, SELFPAY ==
--- NOTE | 2021-06-12 11:20 | HMH.PAINSOAP ---
[facility] Pain Management SOAP Note Subjective:: Patient is a 76-year-old white female who presents today for follow-up. She is here today to have her sutures removed. She has been treated for degenerative disc disease lumbar spine with lumbar radiculopathy symptoms. Patient recently had her spinal cord stimulator explanted. She says she is not having any pain today. Patient says that when the device began to malfunction, she did make a decision at that time not to have the device changed out. She is doing well since explant. Patient rates pain 0 out of 10. Review of Systems General: No recent weight changes, no fever, no sleep disturbances Respiratory: No cough, no shortness of air, no recurring pulmonary infections Cardiovascular/peripheral vascular: No chest pain, no palpitations, no edema, no shortness of breath Gastrointestinal: No new onset incontinence, normal bowel movements reported Genitourinary: No new onset incontinence Musculoskeletal: No pain Psychiatric: [Normal mood/affect] Neurological: [Denies weakness in extremities], [denies balance issues] Objective:: Physical exam General: Alert and oriented x3, no acute distress, pleasant and cooperative, [on room air] Lungs: Respirations even and unlabored, symmetrical chest expansion Eyes: PERRL Musculoskeletal: Flexion and extension of [] [spine] nonguarded, strength in upper and lower extremities [5/5], gait noted Neurological: Speech clear, [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 Incision is well approximated, no redness, no drainage, no edema noted to site. We will follow-up with the patient as needed. She is not interested in additional therapy. patient has been instructed to contact the clinic with any concerns before the next appointment. Dr. Price has reviewed this note and agrees with this plan of care. This note was dictated using voice recognition software and make contain errors or omissions. [facility] History I have reviewed the patient's past medical history: Yes Medical History: Reports:: Anxiety, Chronic Obstructive Pulmonary Disease (COPD), Depression, Gastroesophageal Reflux Disease(GERD), Hyperlipidemia, Hypertension, MRSA Denies:: Cancer, Diabetes Mellitus Type 1, Diabetes Mellitus Type 2, Internal Pacemaker, Seizures *Have you ever received a pneumonia vaccine?: Yes *Have you received a flu vaccine this season?: Yes Other Medical History: Denies: Blood Transfusion Reaction Laterality Cases: Left: Breast Biopsy Other Surgeries: Yes: Cardiac Catheterization, Cholecystectomy, Colonoscopy, Other. No: Pacemaker Amputation: No Fractures: No - *Social History Smoking Status: Current every day smoker Tobacco Type: cigarettes # Packs/Day (cigarettes): 2 Alcohol Intake: never Alcohol Intake Frequency:: holidays/special occasions only Substance Use Type: denies use *Occupational Status:: unemployed Housing: house Household Members: family *Travel in the last 8 weeks: None - Psychiatric History Pschychiatric History:: Reports:: Anxiety, Depression Family Hx:: Coronary Artery Disease, Cancer
[2021-06-12 11:30] VITALS: BP 132/85; PULSE 95; RESP 20; O2SAT 96; BMI 31.9
== END ==
PROVIDERS: Visit Provider Clinical Nurse Specialist Family Health
DX: M51.16 Intervertebral disc disorders with radiculopathy, lumbar region (principal)
CPT/HCPCS: 99212; G0463

== ENCOUNTER → 2021-07-06 10:13 | Outpatient (CLI) | payer MEDICARE, MEDICAID, SELFPAY ==
--- NOTE | 2021-07-06 10:19 | MM_ITS ---
PROCEDURE INFORMATION: Exam: MG Bilateral Screening 3D Mammography Exam date and time: 07/06/2021 10:19 AM Age: 76 years old Clinical indication: Encounter for screening mammogram for malignant neoplasm of breast TECHNIQUE: Imaging protocol: Bilateral screening tomosynthesis and 2D mammography including computer-aided detection (CAD) when performed. COMPARISON: 1. MG MM DIG SCREENING MAMM BI W/CAD 07/03/2020 1:09 PM 2. MG SCBI MM Dig screening mamm BI w/CAD 10/02/2018 3:03 PM FINDINGS: MAMMOGRAPHY: Breast composition: The breast tissue is composed of scattered areas of fibroglandular density. Mass: None. Architectural distortion: None. Calcifications: No suspicious calcifications. Asymmetric density: None. Skin thickening: None. Axillary adenopathy: None. IMPRESSION: No mammographic evidence of malignancy. Annual screening is recommended unless otherwise clinically indicated. ASSESSMENT: BI-RADS Category 1: Negative
== END ==
PROVIDERS: PCP Nurse Practitioner Family; Visit Provider Nurse Practitioner Family
DX: Z12.31 Encounter for screening mammogram for malignant neoplasm of breast (principal)
CPT/HCPCS: 77063; 77067

== ENCOUNTER → 2021-08-02 08:27 | Outpatient (CLI) | payer MEDICARE, MEDICAID, SELFPAY ==
--- NOTE | 2021-08-02 08:32 | XR_ITS ---
PROCEDURE: XR KNEE RT 2V CLINICAL INDICATION: sp RT TKA, sx 09/07/2019 by Wanda COMPARISON: CR XR KNEE RT 4V from 10/04/2019 CR XR KNEE RT 4V from 10/25/2019 CR XR KNEE RT 3V from 11/22/2019 CR XR KNEE RT 3V from 12/27/2019 FINDINGS: Good alignment status post total knee replacement. No evidence of orthopedic complication. No acute fracture or dislocation. No lytic or blastic change. IMPRESSION: Status post total knee replacement with good alignment overall not significantly changed Dictated by: Wellington Burdick MD 08/02/2021 14:57 Wellington Burdick MD in OV 08/02/2021 14:57
== END ==
PROVIDERS: PCP Nurse Practitioner Family; Visit Provider Orthopaedic Surgery
DX: M25.561 Pain in right knee; Z96.651 Presence of right artificial knee joint
CPT/HCPCS: 73560

== ENCOUNTER → 2021-08-09 09:09 | Outpatient (CLI) | payer MEDICARE, MEDICAID, SELFPAY ==
[2021-08-09 09:25] LABS: Basophils # 0.1 K/mm3 (0-0.2); Basophils % 1.2 % (0.1-2.0); Eosinophils # 0.1 K/mm3 (0.0-0.4); Eosinophils % 1.9 % (0.1-12.0); Hematocrit 41.2 % (37.0-47.0); Hemoglobin 13.2 g/dL (12.2-16.2); Lymphocytes # 2.4 K/mm3 (0.7-4.5); Lymphocytes % 42.3 % (10-50); Mean Corpuscular HGB Conc 31.9 g/dL (31.8-35.4); Mean Corpuscular Hemoglobin 30.5 pg (27.0-31.2); Mean Corpuscular Volume 95.6 fl (81-99); Mean Platelet Volume 8.2 fl (7.4-10.4); Monocytes # 0.2 K/mm3 (0.1-1.0); Monocytes % 4.3 % (1.7-9.3); Neutrophils # 2.9 K/mm3 (1.8-7.8); Neutrophils % 50.2 % (37.0-80.0); Platelet Count 322 K/mm3 (142-424); Red Blood Count 4.31 M/mm3 (4.20-5.40); Red Cell Distribution Width 13.8 % (11.5-17.5); White Blood Count 5.7 K/mm3 (4.8-10.8)
[2021-08-09 10:00] LABS: Erythrocyte Sedimentation Rate 26 mm/hr (0-30)
[2021-08-09 10:36] LABS: C-Reactive Protein 2.8 mg/L (0-4)
== END ==
PROVIDERS: Visit Provider Orthopaedic Surgery
DX: M25.561 Pain in right knee; Z96.651 Presence of right artificial knee joint
CPT/HCPCS: 36415; 85025; 85651; 86140

== ENCOUNTER → 2021-10-09 09:52 | Outpatient (CLI) | payer MEDICARE, MEDICAID, SELFPAY ==
--- NOTE | 2021-10-09 10:02 | XR_ITS ---
FINAL REPORT CLINICAL HISTORY: s/p RT TKA COMPARISON: 08/02/2021 FINDINGS: RIGHT KNEE Two views demonstrate no acute fracture or dislocation. The patient is status post knee arthroplasty, stable from prior. IMPRESSION: No acute process. Reviewed, Interpreted and Dictated by Sumanth Peña III, MD Transcribed by Gege Crandall Authenticated by Sumanth Peña III, MD on 10/09/2021 11:29:36 AM [facility]
[2021-10-09 11:08] LABS: C-Reactive Protein 4.1 mg/L (0-4)
[2021-10-09 11:26] LABS: Basophils # 0.1 K/mm3 (0-0.2); Basophils % 2.1 % (0.1-2.0); Eosinophils # 0.1 K/mm3 (0.0-0.4); Eosinophils % 1.3 % (0.1-12.0); Hematocrit 42.1 % (37.0-47.0); Hemoglobin 13.4 g/dL (12.2-16.2); Lymphocytes # 1.9 K/mm3 (0.7-4.5); Lymphocytes % 37.8 % (10-50); Mean Corpuscular HGB Conc 31.8 g/dL (31.8-35.4); Mean Corpuscular Hemoglobin 30.4 pg (27.0-31.2); Mean Corpuscular Volume 95.5 fl (81-99); Mean Platelet Volume 8.2 fl (7.4-10.4); Monocytes # 0.3 K/mm3 (0.1-1.0); Monocytes % 5.7 % (1.7-9.3); Neutrophils # 2.8 K/mm3 (1.8-7.8); Neutrophils % 53.2 % (37.0-80.0); Platelet Count 292 K/mm3 (142-424); Red Blood Count 4.41 M/mm3 (4.20-5.40); Red Cell Distribution Width 14.6 % (11.5-17.5); White Blood Count 5.2 K/mm3 (4.8-10.8)
--- NOTE | 2021-10-09 11:43 | CT_ITS ---
FINAL REPORT TECHNIQUE: Axial, reformatted, and 3D images were obtained of the right shoulder. This study was performed with techniques to keep radiation doses as low as reasonably achievable, (ALARA). Individualized dose reduction techniques using automated exposure control or adjustment of mA and/or kV according to the patient's size were employed. CLINICAL HISTORY: RT Shoulder pain FINDINGS: CT RIGHT SHOULDER WITHOUT CONTRAST Findings: No fracture is identified. There is mild degenerative change of the acromioclavicular joint. There is severe degenerative change of the glenohumeral joint. Musculature is intact. There is no soft tissue mass. Limited images of the right lung demonstrate mild emphysema. IMPRESSION: No acute process. Reviewed, Interpreted and Dictated by Sumanth Peña III, MD Transcribed by Iliana Fletcher Authenticated by Sumanth Peña III, MD on 10/09/2021 12:52:00 PM [facility]
[2021-10-09 11:46] LABS: Erythrocyte Sedimentation Rate 19 mm/hr (0-30)
== END ==
PROVIDERS: PCP Nurse Practitioner Family; Visit Provider Orthopaedic Surgery
DX: Z96.651 Presence of right artificial knee joint (principal); G89.29 Other chronic pain; M19.011 Primary osteoarthritis, right shoulder; M25.511 Pain in right shoulder; M25.561 Pain in right knee
CPT/HCPCS: 36415; 73200; 73560; 85025; 85651; 86140

== ENCOUNTER → 2022-03-12 09:34 | Outpatient (CLI) | payer MEDICARE, MEDICAID, SELFPAY ==
--- NOTE | 2022-03-12 09:39 | XR_ITS ---
FINAL REPORT CLINICAL HISTORY: shoulder pain COMPARISON: February 01, 2021 FINDINGS: RIGHT SHOULDER: 3 views of the right shoulder were obtained. There is no acute fracture or dislocation. There is mild acromioclavicular joint degenerative change. There is moderate to severe glenohumeral joint degenerative change. The degenerative changes have progressed slightly from the prior study. There is no soft tissue abnormality. IMPRESSION: Progressive degenerative changes with no acute fracture Reviewed, Interpreted and Dictated by Sumanth Peña III, MD Transcribed by Gina Sauer Authenticated and [facility]
== END ==
PROVIDERS: PCP Nurse Practitioner Family; Visit Provider Orthopaedic Surgery
DX: M19.011 Primary osteoarthritis, right shoulder (principal)
CPT/HCPCS: 73030

== ENCOUNTER 2022-05-28 16:04 | Emergency (ER) | payer MEDICARE, MEDICAID, SELFPAY ==
[2022-05-28 16:05] VITALS: BP 143/90; PULSE 114; RESP 18; TEMP 37; O2SAT 97; BMI 30.7
[2022-05-28 17:23] VITALS: BP 143/90; PULSE 114; RESP 18; TEMP 37; O2SAT 97; BMI 31.1
--- NOTE | 2022-05-28 17:23 | EXP.UTC ---
Discharge Plan Disposition Patient Disposition: Home, Self-Care Condition: Good Prescriptions Prescriptions: No Action calcium carbonate [Calcium 600] 600 mg calcium (1,500 mg) tablet 600 mg PO BID albuterol sulfate 2.5 MG/NEB solution for nebulization 2.5 mg IH Q6HP PRN (Reason: Shortness Of Breath Or Wheezing) pravastatin 80 MG tablet 80 mg PO HS Label Comments: tiotropium bromide 2.5 MCG mist 2 puffs IH DAILY Label Comments: famotidine 40 MG tablet 40 mg PO NEEDED PRN (Reason: gerd) furosemide 20 MG tablet 20 mg PO DAILYP PRN (Reason: Edema) ergocalciferol (vitamin D2) 50,000 UNIT capsule 50,000 units PO WEEKLY Label Comments: TAKE 1 CAPSULE BY MOUTH ONCE A WEEK escitalopram oxalate 20 MG tablet 20 mg PO DAILY vitamin E (dl, acetate) 400 UNIT capsule 1,600 unit PO DAILY fluticasone furoate-vilanterol 1 EACH blister with device 1 puff IH DAILY aspirin 325 MG tablet 160 mg PO DAILY propranolol 10 MG tablet 10 mg PO BIDL omeprazole 20 MG tablet,delayed release (DR/EC) 20 mg PO DAILY mv,with [id number] 1 EACH tablet 1 each PO DAILY Referrals Follow up/Referrals: Colleen Hare APRN [Primary Care Provider] - See instructions Activity Restrictions/Add. Instructions Additional Instructions/Restrictions: Recommend starting Pepcid twice a day for the next 2 weeks and following up with general surgery about possible intervention. Clinical Impressions Clinical Impression: Acute epigastric pain Discharge ED Provider: Emmanuel Barone [facility] General Chief complaint: Chest Pain Stated complaint: lots of burping Mode of Arrival: Ambulatory Source of Information: Patient Time Seen by Provider: 05/28/22 17:23 Description of Symptoms (Recalled from Triage Doc. by RN): PT REPORTS BELCHING X 3-4 DAYS WITHOUT RELIEF History of Present Illness Provider Complaint: She states that for the past several days she has had episodes of belching that are associated with midsternal chest pain. she thinks that she has gerd, but she is worried that this could be cardiac relatd. Related Data Home Medications Medication Instructions Recorded Confirmed albuterol sulfate 2.5 mg/3 mL 2.5 mg IH Q6HP PRN Shortness Of 10/26/17 10/09/21 (0.083 %) solution for nebulization Breath Or Wheezing pravastatin 80 mg tablet 80 mg PO HS Cholesterol 10/26/17 10/09/21 tiotropium bromide 2.5 2 puffs IH DAILY COPD 10/26/17 10/09/21 mcg/actuation mist for inhalation famotidine 40 mg tablet 40 mg PO NEEDED PRN gerd 02/02/18 10/09/21 calcium carbonate 600 mg calcium 600 mg PO BID Supplement 08/09/19 10/09/21 (1,500 mg) tablet (Calcium) ergocalciferol (vitamin D2) 1,250 50,000 units PO WEEKLY Supplement 09/07/19 10/09/21 mcg (50,000 unit) capsule escitalopram oxalate 20 mg tablet 20 mg PO DAILY MOOD 09/07/19 10/09/21 fluticasone furoate 100 1 puff IH DAILY COPD 09/07/19 10/09/21 mcg-vilanterol 25 mcg/dose inhalation powder furosemide 20 mg tablet 20 mg PO DAILYP PRN Edema 09/07/19 10/09/21 vitamin E (dl, acetate) 180 mg 1,600 unit PO DAILY Supplement 09/07/19 10/09/21 (400 unit) capsule aspirin 325 mg tablet 160 mg PO DAILY Blood thinner 05/08/21 10/09/21 multivit,xpwqcnq-nuir-WO-lut-#179herbal 1 each PO DAILY Supplement 05/08/21 10/09/21 13.5 mg-200 mcg-250 mcg tablet omeprazole 20 mg tablet,delayed 20 mg PO DAILY GERD 05/08/21 10/09/21 release propranolol 10 mg tablet 10 mg PO BIDL Tremors 05/08/21 10/09/21 Allergies Allergy/AdvReac Type Severity Reaction Status Date / Time Penicillins [PENICILLINS] Allergy Mild Unknown Verified 05/28/22 17:35 allergy reaction cefaclor [From CECLOR] Allergy Unknown Unknown Verified 05/28/22 17:35 allergy reaction levofloxacin [From Levaquin] Allergy Unknown Dizziness Verified 05/28/22 17:35 PFS PFS Social History (Review
--- NOTE | 2022-05-28 17:56 | ECG_ITS ---
APPROVED REPORT Exam: Resting ECG HR:93 bpm ECG Measurements Heart Rate 93 AXES KS 195 P 74 QRSd 81 QRS 58 QT 321 T 68 QTc 372 Conclusion SINUS RHYTHM WITH OCCASIONAL SUPRAVENTRICULAR PREMATURE COMPLEXES BORDERLINE ECG UNCONFIRMED REPORT Electronically signed by : Yo Parham MD 05/28/2022 21:06:23
[2022-05-28 18:01] VITALS: BP 135/106; PULSE 97; RESP 17; TEMP 36.9; O2SAT 98; BMI 30.7
--- NOTE | 2022-05-28 18:05 | PC.NURSE ---
ED MD AT BEDSIDE FOR EVALUATION
--- NOTE | 2022-05-28 18:11 | XR_ITS ---
PROCEDURE INFORMATION: Exam: XR Chest Exam date and time: 05/28/2022 6:27 PM Age: 77 years old Clinical indication: Other: Epigastric pain TECHNIQUE: Imaging protocol: Radiologic exam of the chest. Views: 1 view. COMPARISON: CR XR CHEST 2V 08/02/2019 10:42 AM FINDINGS: Tubes, catheters and devices: Thoracic spinal device. Lungs: Scattered pulmonary granulomas. Pleural spaces: Unremarkable. No pleural effusion. No pneumothorax. Heart/Mediastinum: Unremarkable. No cardiomegaly. Bones/joints: Unremarkable. IMPRESSION: No acute findings.
--- NOTE | 2022-05-28 18:15 | PC.NURSE ---
1815 PT TO XR
--- NOTE | 2022-05-28 18:20 | PC.NURSE ---
1820 PT RETURNED FROM XR
[2022-05-28 19:09] LABS: Basophils # 0.1 K/mm3 (0-0.2); Eosinophils # 0.1 K/mm3 (0.0-0.4); Eosinophils % 1.3 % (0.1-12.0); Hematocrit 44.1 % (37.0-47.0); Hemoglobin 13.5 g/dL (12.2-16.2); Lymphocytes # 2.4 K/mm3 (0.7-4.5); Lymphocytes % 30.6 % (10-50); Mean Corpuscular HGB Conc 30.5 g/dL (31.8-35.4); Mean Corpuscular Hemoglobin 29.5 pg (27.0-31.2); Mean Corpuscular Volume 96.9 fl (81-99); Mean Platelet Volume 7.5 fl (7.4-10.4); Monocytes # 0.3 K/mm3 (0.1-1.0); Monocytes % 4.3 % (1.7-9.3); Neutrophils # 4.9 K/mm3 (1.8-7.8); Neutrophils % 62.9 % (37.0-80.0); Platelet Count 326 K/mm3 (142-424); Red Blood Count 4.55 M/mm3 (4.20-5.40); Red Cell Distribution Width 13.9 % (11.5-17.5); White Blood Count 7.7 K/mm3 (4.8-10.8)
[2022-05-28 19:19] LABS: Chloride 104 mmol/L (98-107); Potassium 3.9 mmoL/L (3.5-5.1); Sodium 137 mmol/L (136-145)
[2022-05-28 19:22] LABS: Alanine Aminotransferase 20 U/L (12-78); Albumin Level 4.2 g/dl (3.5-5.0); Albumin/Globulin Ratio 1.6 (1.1-1.8); Alkaline Phosphatase 99 U/L (38-126); Anion Gap 8.9 mEq/L (5-15); Aspartate Amino Transferase 30 U/L (14-36); Bilirubin,Total 0.3 mg/dl (0.2-1.3); Blood Urea Nitrogen 12 mg/dl (7-17); Calcium 10.8 mg/dl (8.4-10.2); Carbon Dioxide 28 mmol/L (22.0-30.0); Creatinine Clearance Estimated 66 mL/min (50-200); Estimated Glomerular Filt Rate 82 ml/min (>60); GFR (African American) 99 ML/MIN (>60); Globulin 2.7 g/dL (1.3-3.2); Glucose 103 mg/dl (74-100); Lactic Acid 0.8 mmol/L (0.7-2.1); Lipase 53 U/L (23-300); Total Protein,Serum 6.9 g/dl (6.3-8.2)
[2022-05-28 19:34] LABS: Troponin I < 0.01 ng/ml (0.00-0.034)
--- NOTE | 2022-05-28 20:05 | HMH.EDGENADL ---
Discharge Plan Disposition Patient Disposition: Home, Self-Care Condition: Good Prescriptions Prescriptions: No Action calcium carbonate [Calcium 600] 600 mg calcium (1,500 mg) tablet 600 mg PO BID albuterol sulfate 2.5 MG/NEB solution for nebulization 2.5 mg IH Q6HP PRN (Reason: Shortness Of Breath Or Wheezing) pravastatin 80 MG tablet 80 mg PO HS Label Comments: tiotropium bromide 2.5 MCG mist 2 puffs IH DAILY Label Comments: famotidine 40 MG tablet 40 mg PO NEEDED PRN (Reason: gerd) furosemide 20 MG tablet 20 mg PO DAILYP PRN (Reason: Edema) ergocalciferol (vitamin D2) 50,000 UNIT capsule 50,000 units PO WEEKLY Label Comments: TAKE 1 CAPSULE BY MOUTH ONCE A WEEK escitalopram oxalate 20 MG tablet 20 mg PO DAILY vitamin E (dl, acetate) 400 UNIT capsule 1,600 unit PO DAILY fluticasone furoate-vilanterol 1 EACH blister with device 1 puff IH DAILY aspirin 325 MG tablet 160 mg PO DAILY propranolol 10 MG tablet 10 mg PO BIDL omeprazole 20 MG tablet,delayed release (DR/EC) 20 mg PO DAILY mv,with [id number] 1 EACH tablet 1 each PO DAILY Referrals Follow up/Referrals: Colleen Hare APRN [Primary Care Provider] - See instructions Activity Restrictions/Add. Instructions Additional Instructions/Restrictions: Recommend starting Pepcid twice a day for the next 2 weeks and following up with general surgery about possible intervention. Clinical Impressions Clinical Impression: Acute epigastric pain Discharge ED Provider: Emmanuel Barone General Adult HPI General Chief complaint: Chest Pain Stated complaint: lots of burping Time Seen by Provider: 05/28/22 17:23 Mode of Arrival: Ambulatory Limitations: No Limitations Description of Symptoms (Recalled from ER Triage Doc. by RN): PT REPORTS BELCHING X 3 DAYS, SENT FROM [facility] [[email or web address] FOR CHEST PAIN. PT DENIES CHEST PAIN. STATES PRESSURE FROM BELCHING History of Present Illness HPI narrative: Patient is a 77-year-old female with a past medical history of hiatal hernia who presents with concern for reflux symptoms and belching. She was seen at the urgent care clinic who sent her over for chest pain work-up. Upon arrival here patient denies any chest pain. She says that it comes from her epigastric pain and she has some intermittent radiation into the subxiphoid area. She says that she has a history of a hiatal hernia and this will intermittently happen to her. She denies any shortness of breath. Denies any nausea or diaphoresis. She says that her symptoms have actually completely resolved now on she free from all pain. Related Data Home Medications Medication Instructions Recorded Confirmed albuterol sulfate 2.5 mg/3 mL 2.5 mg IH Q6HP PRN Shortness Of 10/26/17 10/09/21 (0.083 %) solution for nebulization Breath Or Wheezing pravastatin 80 mg tablet 80 mg PO HS Cholesterol 10/26/17 10/09/21 tiotropium bromide 2.5 2 puffs IH DAILY COPD 10/26/17 10/09/21 mcg/actuation mist for inhalation famotidine 40 mg tablet 40 mg PO NEEDED PRN gerd 02/02/18 10/09/21 calcium carbonate 600 mg calcium 600 mg PO BID Supplement 08/09/19 10/09/21 (1,500 mg) tablet (Calcium) ergocalciferol (vitamin D2) 1,250 50,000 units PO WEEKLY Supplement 09/07/19 10/09/21 mcg (50,000 unit) capsule escitalopram oxalate 20 mg tablet 20 mg PO DAILY MOOD 09/07/19 10/09/21 fluticasone furoate 100 1 puff IH DAILY COPD 09/07/19 10/09/21 mcg-vilanterol 25 mcg/dose inhalation powder furosemide 20 mg tablet 20 mg PO DAILYP PRN Edema 09/07/19 10/09/21 vitamin E (dl, acetate) 180 mg 1,600 unit PO DAILY Supplement 09/07/19 10/09/21 (400 unit) capsule aspirin 325 mg tablet 160 mg PO DAILY Blood thinner 05/08/21 10/09/21 multivit,uigdpmf-rzvr-BC-lut-#179herbal 1 each PO DAILY Supplement 05/08/21 10/09/21 13.5 mg-200 mcg-250 mcg tablet omeprazole 20 mg tablet,delayed 20 m
[2022-05-28 20:18] VITALS: BP 134/71; PULSE 91; RESP 16; TEMP 36.9; O2SAT 98
== END 2022-05-28 20:20 | disposition home or self-care (01) ==
LOC: ER 16:17 → UTC 16:18 → ER 18:00
PROVIDERS: Emergency Provider Student in an Organized Health Care Education/Training Program; PCP Nurse Practitioner Family
DX: R07.9 Chest pain, unspecified (principal); R10.13 Epigastric pain; R06.02 Shortness of breath; K21.9 Gastro-esophageal reflux disease without esophagitis; F17.210 Nicotine dependence, cigarettes, uncomplicated; Z79.51 Long term (current) use of inhaled steroids; Z79.82 Long term (current) use of aspirin; Z79.899 Other long term (current) drug therapy; Z88.0 Allergy status to penicillin; Z88.8 Allergy status to other drugs, medicaments and biological substances
CPT/HCPCS: 71045; 80053; 83605; 83690; 84484; 85025; 93005; 99284

== ENCOUNTER → 2022-07-10 07:51 | Outpatient (CLI) | payer MEDICARE, MEDICAID, SELFPAY ==
--- NOTE | 2022-07-10 07:54 | MM_ITS ---
PROCEDURE INFORMATION: Exam: MG Bilateral Screening 3D Mammography Exam date and time: 07/10/2022 8:11 AM Age: 77 years old Clinical indication: Screening examination. No family history of breast cancer. TECHNIQUE: Imaging protocol: Bilateral Screening tomosynthesis and 2D mammography including computer-aided detection (CAD) when performed. Technologist notes some limitation related to limited mobility of the right shoulder. COMPARISON: 1. MG MM DIG SCREENING MAMM BI W/CAD 07/06/2021 10:25 AM 2. MG MM DIG SCREENING MAMM BI W/CAD 07/03/2020 1:09 PM 3. MG SCBI MM Dig screening mamm BI w/CAD 10/02/2018 3:03 PM 4. MG DMDXUWAR DIG MAMM-DX UNI RT W/AV W/CAD 12/12/2016 10:44 AM FINDINGS: MAMMOGRAPHY: Breast composition: There are scattered areas of fibroglandular density. Mass: None. Architectural distortion: None. Calcifications: No suspicious calcifications. Asymmetric density: No developing asymmetry. Skin thickening: None. Axillary adenopathy: None. IMPRESSION: No mammographic evidence of malignancy. Annual screening is recommended unless otherwise clinically indicated. ASSESSMENT: BI-RADS Category 1: Negative
== END ==
PROVIDERS: PCP Nurse Practitioner Family; Visit Provider Nurse Practitioner Family
DX: Z12.31 Encounter for screening mammogram for malignant neoplasm of breast (principal)
CPT/HCPCS: 77063; 77067

== ENCOUNTER → 2023-04-15 10:36 | Outpatient (CLI) | payer MEDICARE, MEDICAID, SELFPAY ==
--- NOTE | 2023-04-15 10:41 | CA_ITS ---
FINAL REPORT TECHNIQUE: Compression reilly scale and Doppler evaluation CLINICAL HISTORY: Left leg pain x 2 months with edema noted. She has been wearing compression stockings off and on and states the swelling and pain gets better when she wears them. She takes 1/2 of a 325 ASA daily. Smoker. History of bakers cyst in left popliteal fossa seen on left venous doppler done 11/05/18. FINDINGS: Femoral and popliteal veins show normal compressibility and flow. Visualized portion of the calf veins are patent by Doppler exam. A 5 cm x 2 cm popliteal cyst is identified. IMPRESSION: No evidence of left lower extremity deep venous thrombosis Reviewed, Interpreted and Dictated by Toshia Lutz MD Transcribed by Caroline Sterling Authenticated and [facility]
== END ==
PROVIDERS: PCP Nurse Practitioner Family; Visit Provider Physician Assistant
DX: M79.605 Pain in left leg (principal); R60.0 Localized edema
CPT/HCPCS: 93971

== ENCOUNTER → 2023-05-09 10:39 | Outpatient (CLI) | payer MEDICARE, MEDICAID, SELFPAY ==
--- NOTE | 2023-05-09 10:42 | FL_ITS ---
FINAL REPORT CLINICAL HISTORY: BELCHING fluoro time: 1:58 FINDINGS: UPPER GI EXAM HISTORY: Epigastric pain. PROCEDURE: The patient ingested barium. Effervescent crystals were also administered. Spot and overhead films were obtained. FINDINGS: The esophagus is normal. There is a small sliding-type hiatal hernia. There is no gastroesophageal reflux. Peristalsis is normal. There are prominent gastric and duodenal folds suggestive of gastritis/duodenitis. Proximal small bowel loops are otherwise unremarkable. FLUOROSCOPY TIME: 1.58 minutes IMPRESSION: Prominent gastric and duodenal folds suggestive of gastritis/duodenitis. Consider endoscopic correlation. Films reviewed , interpreted and dictated by Dr. Peña Transcribed by Richard Perez PA-C. Reviewed, Interpreted and Dictated by Sumanth Peña III, MD Transcribed by JUSTIN Bardales Authenticated and [facility]
== END ==
PROVIDERS: PCP Nurse Practitioner Family; Visit Provider Nurse Practitioner Family
DX: R14.2 Eructation (principal)
CPT/HCPCS: 74246

== ENCOUNTER → 2023-06-02 08:43 | Outpatient (CLI) | payer MEDICARE, MEDICAID, SELFPAY ==
--- NOTE | 2023-06-02 08:48 | XR_ITS ---
FINAL REPORT TECHNIQUE: Bone densitometry calculations of the lumbar spine and left hip were obtained. CLINICAL HISTORY: POST MENOPAUSAL FINDINGS: Using the right forearm, the bone mineral density is 0.44 g/cm2, corresponding to T-score of -4.3. Using the left hip, the bone mineral density of the femoral neck is 0.59 g/cm2, corresponding to a T-score of -2.3. NOTE: T-score: Standard deviation compared with peak bone mass of young adult mean. *Following the recommendations of the International Society of Bone Densitometry, classification of hip BMD is based on the lower of two T-scores; total hip or femoral neck. IMPRESSION: Osteoporosis: Lowest T-score is at or below -2.5. This patient''s T-score meets the World Health Organization criteria for osteoporosis. Reviewed, Interpreted and Dictated by Sumanth Peña III, MD Transcribed by Kaylie Woodall Authenticated and [facility]
--- NOTE | 2023-06-02 08:48 | CT_ITS ---
FINAL REPORT CLINICAL HISTORY: H/O NICOTINE DEPENDENCE current smoker 1 ppd x 60 years COMPARISON: 07/03/2020 FINDINGS: CT CHEST LOW DOSE SCREENING HISTORY: Screening exam for lung cancer. Current smoker, 60 pack year smoking history DOSE: CTDIvol: 2.9 mGy, DLP: 101.07 mGy*cm COMPARISON: 07/03/2020. TECHNIQUE: Axial CT without IV contrast administration using low dose protocol FINDINGS: The thyroid is enlarged and heterogeneous in appearance, and is stable since the prior CT of 2019. The main pulmonary artery is enlarged, also stable, worrisome for pulmonary hypertension. Mild changes of emphysema are once again noted. There is a calcified granuloma in the right upper lobe. No pulmonary lesions are seen suspicious for neoplasm. No pleural or pericardial effusion is seen . No adenopathy or mass lesion is present . 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 IMPRESSION: Thyroid gland enlarged and heterogeneous but stable since 2020. The main pulmonary artery is enlarged, worrisome for pulmonary hypertension, also stable since the prior exam. No new nodules or pulmonary masses are identified. LUNG RADS CATEGORY 1 RECOMMENDATION: 12 month LDCT follow up Reviewed, Interpreted and Dictated by Sumanth Peña III, MD Transcribed by Caroline Sterling Authenticated and [facility]
== END ==
PROVIDERS: PCP Nurse Practitioner Family; Visit Provider Nurse Practitioner Family
DX: Z87.891 Personal history of nicotine dependence (principal); Z78.0 Asymptomatic menopausal state; Z12.2 Encounter for screening for malignant neoplasm of respiratory organs; Z13.820 Encounter for screening for osteoporosis
CPT/HCPCS: 71271; 77080

== ENCOUNTER → 2023-06-17 07:51 | Outpatient (CLI) | payer MEDICARE, MEDICAID, SELFPAY ==
--- NOTE | 2023-06-17 | CA_ITS ---
APPROVED REPORT EXAM: Comprehensive 2D, Doppler, and color-flow Echocardiogram Rn Med Surg: Regine Rae CRT Ht: 5 ft 6 in Wt: 204lbs BSA: 2.02 BP: 167/75 mmHg Indications: COPD, Shortness of Breath, Hyperlipidemia, Hypertension/HDD, SOB, GERD, Smoker 2D Dimensions LVOT 1.74 cm (M/F) 1.5-2.5 LA Volume 21.70 mL LA Volume Index 10.50 mL/m2 (M/F) 16-34 M-Mode Dimensions RVDd 2.21 cm (0.9-2.6) LA Diam 3.45 cm (1.9-4.0) LVDd 4.37 cm (3.5-5.7) Ao Diam 3.73 cm (2.0-3.7) LVDs 2.93 cm (3.5-5.7) IVSd 1.29 cm (0.6-1.1) PWd 0.76 cm (0.6-1.1) EF (Teich) 61.80% FS 33.00% EDV (Teich) 86.30 mL TAPSE 2.58 (<1.7) ESV (Teich) 33.00 mL LV Diastology E Decel Time 253.00 (160-240 msec) E/A Ratio 0.63 MED E' 8.00 (< 7 cm/sec) MED A' 10.40 cm/s E'/MED E' Ratio 7.95 (>14) LAT E' 7.30 (<10 cm/sec) LAT A' 13.10 cm/s E/LAT E' Ratio 8.71 (>14) Aortic Valve AO Peak GR. 6.00 mmHg Mitral Valve MV A Velocity 101.00 (40-130 cm/s) E/A Ratio 0.63 MV Decel. Time 253.00 (160-240 ms) Pulmonary Valve PV Peak Velocity 123.00 (50-150 cm/s) Tricuspid Valve TR P. Velocity 184.00 cm/s RAP Estimate 10.00 mmHg RVSP 23.60 mmHg Left Ventricle The left ventricle is normal size. The left ventricular systolic function is normal. The left ventricular ejection fraction is within the normal range. There is increased LV wall thickness. There is normal LV segmental wall motion. The left ventricular diastolic function is normal. LVEF is 55-60%. Right Ventricle The right ventricle is normal size. The right ventricular systolic function is normal. Atria The left atrium size is normal. The right atrium size is normal. There is no Doppler evidence of interatrial shunt. Aortic Valve The aortic valve is mildly thickened. There is no aortic valvular stenosis. Trace aortic regurgitation. Mitral Valve Mild mitral annular calcification (MAC). The mitral valve leaflets are mildly thickened. No evidence of mitral valve stenosis. Mild mitral regurgitation. Tricuspid Valve The tricuspid valve leaflets are thin and pliable Trace tricuspid regurgitation. RVSP is normal. Pulmonic Valve The pulmonary valve is normal in structure. Trace pulmonic regurgitation. Great Vessels The aortic root is normal in size. The ascending aorta is normal in size. IVC is normal in size and collapses >50% with inspiration. Pericardium There is no pericardial effusion. Other Information Study Quality: Fair Conclusion Normal biventricular systolic function. No significant valvular stenosis or regurgitation. Electronically signed by : Shyann Silva MD 06/20/2023 14:50:17
== END ==
PROVIDERS: PCP Nurse Practitioner Family; Visit Provider Nurse Practitioner Family
DX: R06.02 Shortness of breath (principal)
CPT/HCPCS: 93306

== ENCOUNTER → 2023-07-15 08:14 | Outpatient (CLI) | payer MEDICARE, MEDICAID, SELFPAY ==
--- NOTE | 2023-07-15 08:17 | MM_ITS ---
PROCEDURE INFORMATION: Exam: MG Bilateral Screening 3D Mammography Exam date and time: 07/15/2023 8:10 AM Age: 78 years old Clinical indication: Screening examination TECHNIQUE: Imaging protocol: Bilateral Screening tomosynthesis and 2D mammography including computer-aided detection (CAD) when performed. COMPARISON: 1. MG MM DIG SCREENING MAMM BI W/CAD 07/10/2022 8:11 AM 2. MG MM DIG SCREENING MAMM BI W/CAD 07/06/2021 10:25 AM FINDINGS: MAMMOGRAPHY: Breast composition: There are scattered areas of fibroglandular density. Mass: None. Architectural distortion: None. Calcifications: No suspicious calcifications. Asymmetric density: None. Skin thickening: None. Axillary adenopathy: None. IMPRESSION: No mammographic evidence of malignancy. Annual screening is recommended unless otherwise clinically indicated. A a good ASSESSMENT: BI-RADS Category 1: Negative
== END ==
PROVIDERS: PCP Nurse Practitioner Family; Visit Provider Nurse Practitioner Family
DX: Z12.31 Encounter for screening mammogram for malignant neoplasm of breast (principal)
CPT/HCPCS: 77063; 77067

== ENCOUNTER 2023-08-21 08:09 | Outpatient (CLI) | payer MEDICARE, MEDICAID, SELFPAY ==
[2023-08-21 08:15] VITALS: BMI 30.4
[2023-08-21 09:09] LABS: Albumin Level 3.7 g/dl (3.5-5.0); Calcium 9.2 mg/dl (8.4-10.2); Creatinine Clearance Estimated 63 mL/min (50-200); Estimated Glomerular Filt Rate 81 ml/min (>60); GFR (African American) 98 ML/MIN (>60)
[2023-08-21 09:32] VITALS: BP 150/79; PULSE 105; RESP 18; TEMP 36.6; O2SAT 98
[2023-08-21 09:55] VITALS: BP 142/82; PULSE 109; RESP 18; O2SAT 98
== END 2023-08-21 09:55 | disposition home or self-care (01) ==
LOC: INF 08:10
PROVIDERS: PCP Nurse Practitioner Family; Visit Provider Nurse Practitioner Family
DX: M81.0 Age-related osteoporosis without current pathological fracture (principal)
CPT/HCPCS: 82040; 82310; 82565; 96374; J3489

== ENCOUNTER 2024-02-02 20:46 | Emergency (ER) | payer MEDICARE, MEDICAID, SELFPAY ==
[2024-02-02 20:47] VITALS: BP 138/52; PULSE 108; RESP 16; TEMP 36.6; O2SAT 95; BMI 29.6
--- NOTE | 2024-02-02 21:43 | HMH.EDGENADL ---
Discharge Plan Disposition Patient Disposition: Home, Self-Care Condition: Good Prescriptions Prescriptions: New sulfamethoxazole-trimethoprim [Bactrim DS] 800-160 mg tablet 1 tab PO BID 10 Days Qty: 20 0RF No Action calcium carbonate [Calcium 600] 600 mg calcium (1,500 mg) tablet 600 mg PO BID albuterol sulfate 2.5 MG/NEB solution for nebulization 2.5 mg IH Q6HP PRN (Reason: Shortness Of Breath Or Wheezing) pravastatin 80 MG tablet 80 mg PO HS Patient Comments: tiotropium bromide 2.5 MCG mist 2 puffs IH DAILY Patient Comments: famotidine 40 MG tablet 40 mg PO NEEDED PRN (Reason: gerd) furosemide 20 MG tablet 20 mg PO DAILYP PRN (Reason: Edema) ergocalciferol (vitamin D2) 50,000 UNIT capsule 50,000 units PO WEEKLY Patient Comments: TAKE 1 CAPSULE BY MOUTH ONCE A WEEK escitalopram oxalate 20 MG tablet 20 mg PO DAILY vitamin E (dl, acetate) 400 UNIT capsule 1,600 unit PO DAILY fluticasone furoate-vilanterol 1 EACH blister with device 1 puff IH DAILY aspirin 325 MG tablet 160 mg PO DAILY propranolol 10 MG tablet 10 mg PO BIDL omeprazole 20 MG tablet,delayed release (DR/EC) 20 mg PO DAILY mv,with [id number] 1 EACH tablet 1 each PO DAILY Referrals Follow up/Referrals: Colleen Hare APRN [Primary Care Provider] - See instructions Activity Restrictions/Add. Instructions Additional Instructions/Restrictions: Patient to follow-up in the [facility] in the a.m. Clinical Impressions Clinical Impression: Post-operative complication Qualifiers: Surgical complication system/body Area: musculoskeletal system Surgical complication type: hematoma Procedure type: musculoskeletal Qualified Code(s): M96.840 - Postprocedural hematoma of a musculoskeletal structure following a musculoskeletal system procedure Instructions Patient Instructions: DI for Skin Abscess Discharge ED Provider: Tre Montano General Adult HPI <JUSTIN Dawkins - Last Filed: 02/02/24 22:35> General Chief complaint: Skin/Abscess/Foreign Body Stated complaint: post op 01/11, incison open and leaking Time Seen by Provider: 02/02/24 21:43 Mode of Arrival: Ambulatory Source of Information: Patient Limitations: No Limitations Description of Symptoms (Recalled from ER Triage Doc. by RN): pt states on january 11 had a total rt shoudler replacement. on friday night began having drainage from incision and more pain. Dr briceño did surgery @ [facility] History of Present Illness HPI narrative: Patient presents for drainage from her surgical incision. Patient had a right total shoulder done by Dr. Briceño on 01/12/2024. Patient has been doing well however over the weekend she noticed drainage from the inferior portion of the surgical incision. It has been draining dark brown discharge. Patient reports tingling in that location but denies significant pain fever chills hemoptysis hematochezia melena nausea vomit diarrhea. Related Data Home Medications Medication Instructions Recorded Confirmed albuterol sulfate 2.5 mg/3 mL 2.5 mg IH Q6HP PRN Shortness Of 10/26/17 10/09/21 (0.083 %) solution for nebulization Breath Or Wheezing pravastatin 80 mg tablet 80 mg PO HS Cholesterol 10/26/17 10/09/21 tiotropium bromide 2.5 2 puffs IH DAILY COPD 10/26/17 10/09/21 mcg/actuation mist for inhalation famotidine 40 mg tablet 40 mg PO NEEDED PRN gerd 02/02/18 10/09/21 calcium carbonate (Calcium 600) 600 mg PO BID Supplement 08/09/19 10/09/21 ergocalciferol (vitamin D2) 1,250 50,000 units PO WEEKLY Supplement 09/07/19 10/09/21 mcg (50,000 unit) capsule escitalopram oxalate 20 mg tablet 20 mg PO DAILY MOOD 09/07/19 10/09/21 fluticasone furoate 100 1 puff IH DAILY COPD 09/07/19 10/09/21 mcg-vilanterol 25 mcg/dose inhalation powder furosemide 20 mg tablet 20 mg PO DAILYP PRN Edema 09/07/19 10/09/21 vitamin E (dl, acetate) 180 mg 1,600 unit PO DAILY Supplement 09/07/19 10/09/21 (400 unit) capsule aspirin 325 mg tablet 160 mg PO DAILY Blood thinner 05/08/21 10/09/21 multivit,[id number]-[id number]-RF-lut-#[id number] 1 each PO DAILY Supplement 05/08/21 10/09/21 13.5 mg-200 mcg-250 mcg tablet omeprazole 20 mg tablet,delayed 20 mg PO DAILY GERD 05/08/21 10/09/21 release propranolol 10 mg tablet 10 mg PO BIDL Tremors 05/08/21 10/09/21 Previous Rx's Medication Instructions Recorded sulfamethoxazole 800 1 tab PO BID 10 days #20 tabs 02/02/24 mg-trimethoprim 160 mg tablet (Bactrim DS) Allergies Allergy/AdvReac Type Severity Reaction Status Date / Time Penicillins [PENICILLINS] Allergy Mild Unknown Verified 07/31/23 15:30 allergy reaction cefaclor [From CECLOR] Allergy Unknown Unknown Verified 07/31/23 15:30 allergy reaction levofloxacin [From Levaquin] Allergy Unknown Dizziness Verified 07/31/23 15:30 PFSH <JUSTIN Dawkins - Last Filed: 02/02/24 22:35> [facility] Disclaimer: The information contained in this section may have been updated after the patient was seen, as this information can be updated by other users. Medical History (Updated 02/02/24 @ 22:32 by JUSTIN Dawkins) Parkinson disease Surgical History History of knee replacement Family History Other No significant family history Social History Smoking Status: Never smoker second hand exposure: Yes alcohol intake: never counseling provided: provider counseling substance use type: denies use current occupational status: disabled Travel in the last 8 weeks: None household members: family housing: house current occupational exposures/hazards: No caffeine: Yes <JUSTIN Dawkins - Last Filed: 02/02/24 22:35> ROS Obtained: Yes Systems reviewed as appropriate & no additional complaints except as documented Physical Exam <JUSTIN Dawkins - Last Filed: 02/02/24 22:35> General General appearance: alert and in no apparent distress Respiratory Respiratory exam: Present normal lung sounds bilaterally Cardiovascular Cardiovascular exam: Present regular rate Neurological Exam Neurological exam: Present alert and oriented X3 Other Other exam information: Patient has had a right total shoulder done with an anterior approach. At the inferior border of the surgical incision she has 2 dark areas that appear to be resolving hematomas. There is no drainage currently there is no evidence of erythema but there is fluctuance it is nontender to palpation. Medical Decision Making <JUSTIN Dawkins - Last Filed: 02/02/24 22:35> [facility] Inquiry Pt receiving controlled substance: No Vital Signs: 02/02/24 20:47 02/02/24 22:40 Temperature 97.8 F 97.9 F Temperature Source Oral Oral Pulse Rate 69 Pulse Rate [Left] 108 H Respiratory Rate 16 18 Blood Pressure 125/51 L Blood Pressure [Right Arm] 138/52 L Blood Pressure Mean [Right Arm] 80 02 Sat by Pulse Oximetry 95 Oxygen Delivery Method Room Air Orders (Tests/Meds): ED MEDICATIONS Discontinued Medications Generic Name Dose Route Start Last Admin Trade Name Freq PRN Reason Stop Dose Admin Trimethoprim/Sulfamethoxazole 1 each 02/02/24 22:35 02/02/24 22:38 Sulfa/Trimethoprim 1 Tablet PO 02/02/24 22:36 1 each ONCE ONE Administration Medical Decision Narrative: In summary patient is a 79-year-old female who presents to the emergency department for evaluation of surgical site drainage. Patient is hemodynamically stable upon arrival, afebrile. Exam is remarkable for what appears to be liquefying hematoma at the inferior portion of her surgical incision. There is no evidence of erythema edema purulence.. Differential diagnosis includes liquefying hematoma versus stitch abscess versus wound dehiscence. Given the nature of a total joint replacement I contacted the on-call surgeon Dr. Thomas Smith for [facility] and had an interactive discussion about patient management. He recommended starting the patient on p.o. antibiotics and having her follow-up in the [place] office in the morning. I had interactive discussion with the patient and the patient directed decision making patient verbalized understanding and agreement. <Tre Montano DO - Last Filed: 02/02/24 23:36> Vital Signs: 02/02/24 20:47 02/02/24 22:40 Temperature 97.8 F 97.9 F Temperature Source Oral Oral Pulse Rate 69 Pulse Rate [Left] 108 H Respiratory Rate 16 18 Blood Pressure 125/51 L Blood Pressure [Right Arm] 138/52 L Blood Pressure Mean [Right Arm] 80 02 Sat by Pulse Oximetry 95 Oxygen Delivery Method Room Air Orders (Tests/Meds): ED MEDICATIONS Discontinued Medications Generic Name Dose Route Start Last Admin Trade Name Luis PRN Reason Stop Dose Admin Trimethoprim/Sulfamethoxazole 1 each 02/02/24 22:35 02/02/24 22:38 Sulfa/Trimethoprim 1 Tablet PO 02/02/24 22:36 1 each ONCE ONE Administration Medical Decision Narrative: In summary patient is a 79-year-old female who presents to the emergency department for evaluation of surgical site drainage. Patient is hemodynamically stable upon arrival, afebrile. Exam is remarkable for what appears to be liquefying hematoma at the inferior portion of her surgical incision. There is no evidence of erythema edema purulence.. Differential diagnosis includes liquefying hematoma versus stitch abscess versus wound dehiscence. Given the nature of a total joint replacement I contacted the on-call surgeon Dr. Thomas Smith for [facility] and had an interactive discussion about patient management. He recommended starting the patient on p.o. antibiotics and having her follow-up in the [place] office in the morning. I had interactive discussion with the patient and the patient directed decision making patient verbalized understanding and agreement. I was consulted by the [facility], and we discussed the complexity of the problems being addressed. I approved the treatment and management plan for this patient's care in the Emergency Department, thus performing a substantive portion of the medical decision making. Tre Montano, DO Critical Care <JUSTIN Dawkins - Last Filed: 02/02/24 22:35> Critical Care Time Critical Care Time: No
[2024-02-02] MEDS: SULFA/TRIMETHOPRIM 1 TABLET 1 EACH PO (22:38)
[2024-02-02 22:40] VITALS: BP 125/51; PULSE 69; RESP 18; TEMP 36.6; O2SAT 95
== END 2024-02-02 22:40 | disposition home or self-care (01) ==
PROVIDERS: Emergency Provider Emergency Medicine; PCP Nurse Practitioner Family
DX: M96.840 Postprocedural hematoma of a musculoskeletal structure following a musculoskeletal system procedure (principal); Z96.611 Presence of right artificial shoulder joint
CPT/HCPCS: 99283

== ENCOUNTER 2024-07-22 10:51 | Outpatient (CLI) | payer MEDICARE, SELFPAY ==
--- NOTE | 2024-07-22 10:52 | MM_ITS ---
PROCEDURE INFORMATION: Exam: MG Bilateral Screening 3D Mammography Exam date and time: 07/22/2024 10:57 AM Age: 79 years old Clinical indication: Screening examination TECHNIQUE: Imaging protocol: Bilateral Screening tomosynthesis and 2D mammography including computer-aided detection (CAD) when performed. COMPARISON: 1. MG MM DIG SCREENING MAMM BI W/CAD 07/15/2023 8:10 AM 2. MG MM DIG SCREENING MAMM BI W/CAD 07/10/2022 8:11 AM FINDINGS: MAMMOGRAPHY: Breast composition: The breasts are almost entirely fatty. Mass: None. Architectural distortion: None. Calcifications: No suspicious calcifications. Asymmetric density: None. Skin thickening: None. Axillary adenopathy: None. IMPRESSION: No mammographic evidence of malignancy. Annual screening is recommended unless otherwise clinically indicated. ASSESSMENT: BI-RADS Category 1: Negative.
== END 2024-07-22 23:59 | disposition home or self-care (01) ==
LOC: RAD 10:51
PROVIDERS: PCP Nurse Practitioner Family; Visit Provider Nurse Practitioner Family
DX: Z12.31 Encounter for screening mammogram for malignant neoplasm of breast (principal)
CPT/HCPCS: 77063; 77067

== ENCOUNTER 2024-10-30 10:31 | Outpatient (CLI) | payer MEDICARE, SELFPAY ==
--- NOTE | 2024-10-30 10:40 | XR_ITS ---
PROCEDURE INFORMATION: Exam: XR Chest Exam date and time: 10/30/2024 10:42 AM Age: 79 years old Clinical indication: Shortness of breath; Additional info: Copd exacerbation TECHNIQUE: Imaging protocol: Radiologic exam of the chest. Views: 2 views. COMPARISON: 1. CT LUNG SCREENING 06/02/2023 9:12 AM 2. CR XR CHEST PORTABLE 05/28/2022 6:27 PM FINDINGS: Tubes, catheters and devices: Thoracic spinal device again demonstrated. Lungs: No pulmonary edema or consolidation. Right upper lobe calcified granuloma again demonstrated. Pleural spaces: No pleural effusion. No pneumothorax. Heart/Mediastinum: Cardiomediastinal silhouette is normal. Bones/joints: No acute abnormality. Status post right shoulder arthroplasty. Partially imaged lumbar hardware. IMPRESSION: No acute findings.
== END 2024-10-30 23:59 | disposition home or self-care (01) ==
LOC: RAD 10:34
PROVIDERS: PCP Nurse Practitioner Family; Visit Provider Nurse Practitioner Family
DX: J44.1 Chronic obstructive pulmonary disease with (acute) exacerbation (principal)
CPT/HCPCS: 71046

== ENCOUNTER 2024-12-16 12:30 | Outpatient (CLI) | payer MEDICARE, SELFPAY ==
--- NOTE | 2024-12-16 12:34 | XR_ITS ---
FINAL REPORT CLINICAL HISTORY: PAIN FINDINGS: 3 views of the right shoulder were performed. Note is made of a thoracic spinal stimulator. The humeral head is located within the glenoid. However, there is moderate to severe glenohumeral narrowing. There is minimal anterior humeral head spurring. The acromioclavicular joint is intact. There is superior spurring of the AC joint. The scapula is intact. The visualized portions of the left chest wall demonstrate no acute abnormalities. IMPRESSION: Degenerative changes without acute bony abnormality. There is no dislocation or fracture. Authenticated and [facility]
== END 2024-12-16 23:59 | disposition home or self-care (01) ==
LOC: RAD 12:31
PROVIDERS: PCP Nurse Practitioner Family; Visit Provider Nurse Practitioner Family
DX: M25.512 Pain in left shoulder (principal)
CPT/HCPCS: 73030

== ENCOUNTER 2025-08-04 10:38 | Outpatient (CLI) | payer MEDICARE, MEDICAID, SELFPAY ==
--- NOTE | 2025-08-04 10:43 | XR_ITS ---
FINAL REPORT CLINICAL HISTORY: pain FINDINGS: LEFT TIBIA FIBULA Two views were obtained. There is no fracture or dislocation. The joint spaces appear normal. The bones are osteopenic. No soft tissue abnormality is identified. IMPRESSION: No acute process. Reviewed, Interpreted and Dictated by Toshia Lutz MD Transcribed by Gege Crandall Authenticated and . [facility]
--- NOTE | 2025-08-04 10:43 | XR_ITS ---
FINAL REPORT CLINICAL HISTORY: PAIN FINDINGS: LEFT KNEE Three views were obtained. There is no fracture or dislocation. There is moderate tricompartment degenerative change. Small joint effusion is identified. The bones are osteopenic. No soft tissue abnormality is identified. IMPRESSION: Moderate degenerative changes. Reviewed, Interpreted and Dictated by Toshia Lutz MD Transcribed by Gege Crandall Authenticated and [facility]
--- OUTSIDE RECORDS SUMMARY | 2025-08-04 11:05 | XMS_ITS | Clinical Summary ---
Author Organization [facility] yste Address [address] [place] [address] Care Team Providers Care Purchasing/Receiving Name Role Phone Unavailable Primary Care Provider Unavailabl e Social History Tobacco Use Types Packs/Day Years Used Date Smoking Tobacco: Never Assessed Abuse Screen Answer Date Recorded Unsafe at Home or Work/School Not on file Feels Threatened by Someone? Not on file 06/2023 Does Anyone Keep You from Co ntacting Others or Doint Things Outside the Home? Not on file 07/01/2023 Physical Sign of Abuse Present Not on file 1 Housing Stability Answer Date Recorded Current Living Arrangements Not on file 06/22 Potentially Unsafe Housing Conditions Not on efe e 07/01/2023 Family and Community Support Answer Amol e Recorded Help with Day-to-Day Activities Not on file 07/01/2023 Lonely or Isolated Not on file 07/01/2023 Employment Answer Date Recorded Do you want help finding or keeping work or a jag b? Not on file 07/01/2023 Disabilities Answer Date Recorded Concentrating, Remembering, or Making Decisions Difficulty Not on file 07/01/2023 Doing Errands Independently Difficulty Not on fi le 07/01/2023 Education Answer Date Recorded Help with school or training? Not on file Preferred Language Not on file 07/01/2023 Comments Unknown Sex and Gender Information Value Date Recorded Sex Assigned at Not on file Legal Sex Female 1:49 PM EDT Gender Identity Not on file Sexual Orientation Not on file Plan of Treatment Health Maintenance Due Date Last Done Comments ANNUAL PHYSICAL 1945 DXA SCAN 1945 HEPATITIS C SCREENING 1945 TDAP/TD VACCINES (1 - Tdap) 1966 Pneumococcal Vaccine 50+ (1 of 1 - PCV) 1997 ZOSTER VACCINE (1 of 2) 1997 RSV Vaccine - Adults (1 - 1-dose 75+ series) 2 INFLUENZA VACCINE 04/22/2025 COVID-19 Vaccine (2023- season) 2025
== END 2025-08-04 23:59 | disposition home or self-care (01) ==
PROVIDERS: PCP Nurse Practitioner Family; Visit Provider Nurse Practitioner Family
DX: M17.12 Unilateral primary osteoarthritis, left knee (principal); M79.662 Pain in left lower leg
CPT/HCPCS: 73562; 73590

== ENCOUNTER 2025-08-12 08:18 | Outpatient (CLI) | payer MEDICARE, MEDICAID, SELFPAY ==
--- NOTE | 2025-08-12 08:21 | MM_ITS ---
PROCEDURE INFORMATION: Exam: MG Bilateral Screening 3D Mammography Exam date and time: 08/12/2025 8:24 AM Age: 80 years old Clinical indication: Screening examination TECHNIQUE: Imaging protocol: Bilateral Screening tomosynthesis and 2D mammography including computer-aided detection (CAD) when performed. COMPARISON: MG MM DIG SCREENING MAMM BI W/CAD 07/22/2024 10:57 AM FINDINGS: MAMMOGRAPHY: Breast composition: There are scattered areas of fibroglandular density. Mass: None. Architectural distortion: None. Calcifications: No suspicious calcifications. Asymmetric density: None. Skin thickening: None. Axillary adenopathy: None. IMPRESSION: No mammographic evidence of malignancy. Annual screening is recommended unless otherwise clinically indicated. ASSESSMENT: BI-RADS Category 1: Negative.
--- OUTSIDE RECORDS SUMMARY | 2025-08-12 08:21 | XMS_ITS | Clinical Summary ---
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
== END 2025-08-12 23:59 | disposition home or self-care (01) ==
LOC: RAD 08:18
PROVIDERS: PCP Nurse Practitioner Family; Visit Provider Nurse Practitioner Family
DX: Z12.31 Encounter for screening mammogram for malignant neoplasm of breast (principal); R92.323 Mammographic fibroglandular density, bilateral breasts
CPT/HCPCS: 77063; 77067

== ENCOUNTER 2025-08-22 13:59 | Outpatient (CLI) | payer MEDICARE, MEDICAID, SELFPAY ==
--- NOTE | 2025-08-22 | CA_ITS ---
FINAL REPORT CLINICAL HISTORY: LLE pain x 2-3 months. Denies trauma. HTN, HLD, smoker. She takes 1/2 of 325 mg ASA daily. COMPARISON: 04/15/2023 FINDINGS: DUPLEX VENOUS SONOGRAPHY OF THE LEFT LOWER EXTREMITY Multiple transverse and longitudinal scans were performed of the femoropopliteal deep venous system, with augmentation and compression maneuvers. HISTORY: Pain and swelling FINDINGS: Normal phasic flow was noted in the visualized deep venous system. No intraluminal increased echogenicity is noted to suggest thrombus. There is normal compression and augmentation of the venous structures. No abnormal venous collaterals are seen. A complex popliteal cyst is present, similar to the prior exam of 2022. IMPRESSION: No evidence of deep venous thrombosis of the left lower extremity. Reviewed, Interpreted and Dictated by Sadaf Andre MD Transcribed by Caroline Sterling Authenticated and . [facility]
--- OUTSIDE RECORDS SUMMARY | 2025-08-22 14:02 | XMS_ITS | Clinical Summary ---
Author Organization [facility] yste Address [address] [place] [address] Care Team Providers Care Manager Of Disaster Recovery Name Role Phone Unavailable Primary Care Provider [...]
== END 2025-08-22 23:59 | disposition home or self-care (01) ==
LOC: RT 13:59
PROVIDERS: PCP Nurse Practitioner Family; Visit Provider Nurse Practitioner Family
DX: M79.605 Pain in left leg (principal); R60.0 Localized edema
CPT/HCPCS: 93971

== ENCOUNTER 2025-08-30 09:03 | Outpatient (CLI) | payer MEDICARE, MEDICAID, SELFPAY ==
--- NOTE | 2025-08-30 09:06 | XR_ITS ---
FINAL REPORT CLINICAL HISTORY: SCREENING COMPARISON: 06/02/2023 FINDINGS: Using the left forearm, the bone mineral density of the mid is 0.107 g/cm?, corresponding to a T-score of -9.1. This was not measured on the prior exam. The diminished bone mineral density corresponds to osteoporosis. Using the left hip, the bone mineral density of the femoral neck is 0.606 g/cm2, corresponding to a T-score of -2.2. The diminished bone mineral density corresponds to osteopenia. The bone mineral density change versus baseline is 2.4%. Using the right hip, the bone mineral density of the femoral neck is 0.71 g/cm2, corresponding to a T-score of -1.9. The diminished bone mineral density corresponds to osteopenia. The bone mineral density change versus baseline is 3.3%. The lumbar spine images were degraded secondary to metallic artifact from prior spinal fusion. NOTE: T-score: Standard deviation compared with peak bone mass of young adult mean. *Following the recommendations of the International Society of Bone densitometry, classification of hip BMD is based on the lower of two T-scores; total hip or femoral neck. IMPRESSION: Diminished bone mineral density of the bilateral hips is consistent with osteopenia. Diminished bone mineral density of the left forearm is consistent with osteoporosis. Reviewed, Interpreted and Dictated by Roly Levy MD Transcribed by Caroline Sterling Authenticated and [facility]
== END 2025-08-30 23:59 | disposition home or self-care (01) ==
LOC: RAD 09:04
PROVIDERS: PCP Nurse Practitioner Family; Visit Provider Nurse Practitioner Family
DX: Z13.820 Encounter for screening for osteoporosis (principal); Z78.0 Asymptomatic menopausal state; M81.0 Age-related osteoporosis without current pathological fracture
CPT/HCPCS: 77081

== ENCOUNTER 2025-09-19 09:00 | Outpatient (RCR) | payer MEDICARE, MEDICAID, SELFPAY ==
--- NOTE | 2025-09-06 15:44 | HMH.OPLYMPH ---
Rehab Lymphedema Evaluation Rehab Lymphedema Evaluation Start: 09/06/25 15:29 Freq: Status: Active Protocol: Document 09/06/25 15:29 GEOVANNA (Rec: 09/06/25 15:44 PHORNE [id number]) E-signed By Moy Craven, PT Subjective/History History History This is the initial PT lymphedema eval for Carolina Pickard, 80 yowf who presents with c/o L LE increased edema x ~ 6 mos with insidious onset of symptoms. She reports increased pain in the L lower leg x ~ 1 mo now also. She reports intermittent tingling and numbness throughout the L lower leg. She reports the edema in her L LE does not decrease with elevation and does increase with prolonged dependent positioning. She present with popliteal bursitis which has been present for several years. She had US which was negative for DVT. She reports no significant PMH, but is a smoker with > 60 yrs of 1 PPD. Subjective Subjective Currently she reports pain is 0/10 in L LE, but at worst she reports pain is 10/10. 2+ pitting edema and MILD erythema noted in L lower leg. Mild increased warmth in the L LE with 3/4 TTP to L lower leg gaiter area. Decreased capillary refill noted to L LE toes this date with toes feeling mildly cold. no CHEYANNE noted in current medical hx, but an CHEYANNE is recommended at this time to assess arterial blood flow. LLIS: 58 Lymphedema Eval Classification of Lymphedema Secondary Lymphedema Yes Stemmer's sign Stemmer's Sign no Stage of Lymphedema Lymphedema stages Stage II (Pitting edema, increased fibrosis w/ decreased pitting) Skin Changes Dry Skin Yes Taut, Shiny Skin Yes Redness Yes Discoloration of Yes Skin Other Changes Yes Pain Scale Pain Scale (0-10) 10 Affected Extremities Areas Affected by Left Lower Extremity Lymphedema/Edema Lower Extremity Measurements Left MTP Measurement (cm) 22.7 Heel Measurement (cm 33.4 ) 10 cm Proximal to 26.4 Lateral Malleoli Measurement (cm) 20 cm Proximal to 40.7 Lateral Malleoli Measurement (cm) 30 cm Proximal to 44.8 Lateral Malleoli Measurement (cm) 40 cm Proximal to 42.2 Lateral Malleoli Measurement (cm) 50 cm Proximal to 0 Lateral Malleoli Measurement (cm) 60 cm Proximal to 0 Lateral Malleoli Measurement (cm) Lower Extremity 210.2 Measurement Total ( cm) Manual Lymphatic Drainage Treatment Area MLD Treatment Area Left Lower Extremity Wound Problems/Impairments Impairments Problems/ Palpation Tenderness,Impaired Range of Motion,Impaired Impairmments Strength,Impaired Endurance,Impaired Transfers,Impaired Gait Pattern,Impaired Walking,Impaired Standing, Impaired Sitting,Impaired Shower/Bathing,Impaired Household Care,Impaired Stair Climbing,Impaired Incline Stepping,Impaired Stepping on Uneven Surface,Impaired Squatting,Impaired Recreational Activities,Increased Edema,Lymphedema Present,Subjective C/O Pain,Impaired Self Care/Self Management Prognosis Rehab Potential Good Comment Skilled therapy is indicated to reduce overall L LE lymphedema in order to decrease pain, improve ambulation, and increase transfer ability in order to return pt to [facility]. Clinical Impression Consistent with Yes Diagnosis Lymphedema Patient Goals Lymphedema Patient Goals Lymphedema Short In 2 wks pt will complete these goals in order to aid Term Patient Goals improvement in function specifically with all ADLs: 1) Decrease circumferential measurements in L LE by 3 cm total Lymphedema Penitentiary In 4 wks pt will complete these goals in order to aid Patient Goals improvement in function specifically with all ADLs: 1) Decrease circumferential measurements in L LE by 6 cm total 2) Decrease pain in L LE at worst to 6/10 3) Improve ability to ambulate > 10 min without difficulty. Outpatient Therapy Plan of Care Treatment Plan May Include Therapeutic Exercise Yes Including Home Exercise Program Manual Therapy Yes Techniques Neuromuscular Re- Yes education Therapeutic Yes Activities to Return to Previous Functional/Work Level ADL/Self Care Yes Education Manual Lymphatic Yes Drainage Eval/Re-Eval Yes Frequency Times per week 2 Duration Number of Weeks 4 Addendums This patient is a No candidate for social or vocational rehab ? Patient/Guardian Yes verbally acknowledges understanding of treatment program and consents to further treatment? Patient/Guardian Yes verbally acknowledges understanding of diagnosis, prognosis and goals for treatment? Eval Complexity PT Charges [id number] - Moderate Complexity PHYSICIAN CERTIFICATION: I certify the specified therapy services for Carolina Pickard are required, authorized, and reviewed every 30 days.
== END 2025-09-19 23:59 | disposition home or self-care (01) ==
LOC: PT 09:00
PROVIDERS: PCP Nurse Practitioner Family; Visit Provider Nurse Practitioner Family
DX: R60.0 Localized edema (principal)
CPT/HCPCS: 97140; 97162